=== PATIENT | female | born 1980 | race Caucasian/White ===

== ENCOUNTER → 2018-04-04 15:40 | Outpatient (CLI) | payer OTHER, SELFPAY | PROVIDERS: Visit Provider Otolaryngology Otolaryngology/Facial Plastic Surgery | DX: J32.9 Chronic sinusitis, unspecified (principal) | CPT/HCPCS: 87070; 87205 ==

== ENCOUNTER → 2018-06-30 16:31 | Outpatient (CLI) | payer OTHER, SELFPAY | PROVIDERS: Referring Provider Otolaryngology; Visit Provider Otolaryngology | DX: J01.90 Acute sinusitis, unspecified (principal) | CPT/HCPCS: 87070; 87205 ==

== ENCOUNTER → 2018-09-15 15:59 | Outpatient (CLI) | payer OTHER, SELFPAY ==
--- NOTE | 2018-09-15 16:02 | CT_ITS ---
STUDY: CT MAXILLOFACIAL SINUSES REASON FOR EXAM: Female, 38 years old. Recurrent sinusitis after multiple antibiotics RADIATION DOSAGE (If Supplied By Facility): CTDIvol = ( 33.45 ) mGy, DLP = ( 814 ) mGycm TECHNIQUE: The patient was scanned in a multi detector CT scanner. High resolution axial imaging was performed without the administration of intravenous contrast material. Sagittal and coronal images were reconstructed. Individualized dose optimization techniques were used for this CT. COMPARISON: None. FINDINGS: FRONTAL SINUSES: Normal aeration, without mucosal inflammatory disease. ETHMOIDAL SINUSES: Normal aeration, without mucosal inflammatory disease. MAXILLARY SINUSES: Normal aeration, without mucosal inflammatory disease. SPHENOIDAL SINUSES: Normal aeration, without mucosal inflammatory disease. There is patency of the bilateral maxillary infundibuli with normal uncinate processes, ethmoid bullae, and hiatus semilunaris. Normal bilateral middle turbinates. Normal bilateral inferior turbinates. There is a right sided nasal septal deviation with a right sided nasal septal spur. There is patency of the bilateral nasal airways. The visualized osseous structures are normal. The visualized bilateral orbital contents are normal. CT/Sinus/Facial Bone IMPRESSION: Normal CT examination of the maxillofacial sinuses. Rightward nasal septal deviation with apical spur. Electronically Signed: Armando Dudley MD at 10:00 EST , Service support ,
== END ==
PROVIDERS: Referring Provider Otolaryngology; Visit Provider Otolaryngology
DX: J32.9 Chronic sinusitis, unspecified (principal)
CPT/HCPCS: 70486

== ENCOUNTER → 2018-09-25 08:30 | Outpatient (CLI) | payer OTHER, SELFPAY ==
--- NOTE | 2018-09-25 08:30 | RAD_ITS ---
STUDY: HYSTEROSALPINGOGRAM. REASON FOR EXAM: Female, 38 years old. Infertility. FLUOROSCOPY TIME (if supplied): (0:15) minutes/seconds. 2 images. TECHNIQUE: A hysterosalpingogram was performed by the manager store. Fluoroscopic services were provided. COMPARISON: None. FINDINGS: The uterus is unremarkable. Both fallopian tubes are patent with free spill. RAD/Salpingogram IMPRESSION: There is patency of both fallopian tubes with free spill. The uterus is unremarkable. Electronically Signed: Gregg Wells MD at 10:53 EST , Service support ,
== END ==
PROVIDERS: Referring Provider Obstetrics & Gynecology; Visit Provider Obstetrics & Gynecology
DX: N97.9 Female infertility, unspecified (principal)
CPT/HCPCS: 58340; 74740; Q9967

== ENCOUNTER → 2020-01-10 13:32 | Outpatient (CLI) | payer OTHER, SELFPAY | PROVIDERS: Referring Provider Internal Medicine Gastroenterology; Visit Provider Internal Medicine Gastroenterology | DX: Z11.59 Encounter for screening for other viral diseases (principal) | CPT/HCPCS: 87635; G2023; U0004 ==

== ENCOUNTER → 2020-06-13 07:59 | Outpatient (CLI) | payer OTHER, SELFPAY ==
[2020-06-12 17:40] VITALS: BMI 47.1
[2020-06-13 13:21] LABS: Absolute Lymphocyte Count 1.74 X10^3/uL (0.83-4.51); Absolute Neutrophil Count 2.9 X10^3/uL (2.0-7.7); Basophil# 0.04 X10^3/uL; Basophil% 0.7 % (0-1); Eosinophil# 0.32 X10^3/uL; Eosinophils% 5.9 % (0-5); Hematocrit 41.3 % (37-47); Hemoglobin 12.4 g/dL (12.0-15.0); Lymphocyte # 1.74 X10^3/ul (4.0); Lymphocyte % 32.3 % (19-41); Mean Corpuscular Hgb 24.6 pg (27.0-32.0); Mean Corpuscular Volume 81.9 fL (81-99); Mean Platelet Vol. 10.7 fl (6.2-12.0); Monocyte# 0.38 X10^3/uL; Monocyte% 7.1 % (0-10); NRBC Flagged by Analyzer 0 % (0-5); Neutrophil # 2.89 X10^3/uL (2.7-7.7); Neutrophil % 53.8 % (47-70); Platelet Count 349 K/mm3 (150-450); RBC Distribution Width CV 15.8 % (11.6-14.6); RBC Distribution Width SD 47.3 fl (35.1-43.9); Red Blood Count 5.04 M/mm3 (4.2-5.4); White Blood Count 5.4 K/mm3 (4.4-11.0)
[2020-06-13 13:45] LABS: AST(SGOT) 14 U/L (15-37); Alanine Aminotransfer ALT/SGPT 22 U/L (13-56); Albumin, Serum 3.6 g/dL (3.2-5.0); Alkaline Phosphatase 48 U/L (45-117); Anion Gap 8 (5-15); BUN 21 mg/dL (7-18); Calcium,Total 8.6 mg/dL (8.5-10.1); Chloride 107 mmol/L (98-107); EST Glomerular Filtration Rate 65 mL/min (>60); Est Glom Filt Rate - Afr Amer 79 mL/min (>60); Globulin 3.6 g/dL (2.2-4.2); Glucose 84 mg/dL (74-106); Potassium 3.8 mmol/L (3.5-5.1); Protein, Total 7.2 g/dL (6.4-8.2); Sodium Level 140 mmol/L (136-145); T4 Free Direct 0.98 ng/dL (0.76-1.46); Thyroid Stim Hormone (TSH) 1.71 uIU/mL (0.358-3.74)
== END ==
PROVIDERS: PCP Internal Medicine; Referring Provider Internal Medicine; Visit Provider Internal Medicine
DX: D64.9 Anemia, unspecified (principal); K21.9 Gastro-esophageal reflux disease without esophagitis; N92.6 Irregular menstruation, unspecified
CPT/HCPCS: 36415; 80053; 84439; 84443; 85025

== ENCOUNTER → 2020-06-24 10:26 | Outpatient (CLI) | payer OTHER, SELFPAY ==
[2020-06-23 15:44] VITALS: BMI 47.7
[2020-06-24 13:01] LABS: Hemoglobin A1c 5.3 % (3.8-5.6)
[2020-06-24 13:02] LABS: Prolactin 16.2 ng/mL
[2020-06-29 16:07] LABS: Testosterone, % Free 2.75 % (0.50-2.80); Testosterone, Free 0.36 ng/dL (0.10-0.85); Testosterone, Total 13 ng/dL (8-48)
== END ==
PROVIDERS: PCP Internal Medicine; Referring Provider Obstetrics & Gynecology; Visit Provider Obstetrics & Gynecology
DX: Z31.9 Encounter for procreative management, unspecified (principal)
CPT/HCPCS: 36415; 83036; 83516; 84146; 84402; 84403

== ENCOUNTER → 2020-07-16 | Outpatient (CLI) | payer OTHER, SELFPAY ==
[2020-06-23 15:44] VITALS: BMI 47.7
[2020-07-16 12:09] LABS: Mucous, Urine 0 SEEN /hpf (<or=2+)
[2020-07-16 15:28] LABS: Color, Urine Yellow (Yellow); Glucose, Dipstick Normal (Normal); Ketone-Dipstick Negative (Negative); Leukocyte Esterase-Dipstick 25 /ul (Negative); Nitrite-Dipstick Negative (Negative); Occult Blood-Urine 150 /ul (Negative); Protein-Dipstick 100 mg/dl (Negative); Specific Gravity, Urine 1.005 (1.002-1.030); Urine Bilirubin Dipstick Negative (Negative); Urine Clarity Clear (Clear); Urine Urobilinogen Normal (Normal)
[2020-07-16 15:43] LABS: Bacteria 1+ /hpf (None Seen); Squamous Epithelial Cells - UA 10-25 SEEN /hpf (5-10); White Blood Cells 5-10 SEEN /hpf (0-5)
[2020-07-16 15:44] LABS: Red Blood Cells-Urine 0-5 SEEN /hpf (0-5)
== END | disposition home or self-care (01) ==
PROVIDERS: PCP Internal Medicine; Referring Provider Internal Medicine; Visit Provider Internal Medicine
DX: R31.9 Hematuria, unspecified (principal)
CPT/HCPCS: 81001; 87086; 87088; 87186

== ENCOUNTER → 2020-09-29 07:26 | Outpatient (CLI) | payer OTHER, SELFPAY ==
--- NOTE | 2020-09-29 07:28 | CT_ITS ---
STUDY: CT BRAIN AND SINUSES WITHOUT CONTRAST REASON FOR EXAM: Female, 40 years old. CHRONIC SINUSITIS RADIATION DOSAGE (If Supplied By Facility): CTDIvol = ( 33.06 ) mGy, DLP = ( 726.41 ) mGycm TECHNIQUE: Transaxial CT imaging of the brain was performed without administration of contrast. Individualized dose optimization techniques were used for this CT. COMPARISON: No relevant priors. FINDINGS: CT BRAIN Normal soft tissue structures. Normal calvarium. Normal size ventricles and extra-axial spaces for the patient''s age. Normal white matter tracts of the cerebral hemispheres. Normal basal ganglia and thalami. Normal brainstem. Normal cerebellum. There is no intracranial hemorrhage. There are no findings of an acute ischemic infarction. CT SINUSES Post Surgical Changes: None. Frontal Sinus and Recess: Normal aeration without mucosal inflammatory disease. Ethmoidal Sinuses: Normal aeration without mucosal inflammatory disease. Maxillary Sinuses: Normal aeration without mucosal inflammatory disease. Ostiomeatal Complex: Clear. Sphenoid Sinus: Normal aeration without mucosal inflammatory disease. Sphenoethmoidal Recess: Clear. Nasal Turbinate (Right): Middle Turbinate (Right): Normal. Middle Turbinate (Left): Normal. Inferior Turbinate (Right): Normal. Inferior Turbinate (Left): Normal. Nasal Septum: Right sided nasal septal deviation with a nasal septal spur. Nasal Airway: Clear. Cri biform Plate / Anterior Cranial Fossa: Normal. Orbits: Normal. CT/Sinus/Facial Bone IMPRESSION: Right nasal septal deviation with a nasal septal spur. The sinuses are clear. Electronically Signed: Gregg Wells MD at 9:37 EST , Service support ,
== END ==
PROVIDERS: PCP Internal Medicine; Referring Provider Otolaryngology; Visit Provider Otolaryngology
DX: J32.2 Chronic ethmoidal sinusitis (principal)
CPT/HCPCS: 70486

== ENCOUNTER → 2020-11-03 09:05 | Outpatient (CLI) | payer OTHER, SELFPAY ==
[2020-06-23 15:44] VITALS: BMI 47.7
--- NOTE | 2020-11-03 09:08 | BI_ITS ---
MAMMOGRAPHY - BILATERAL DIAGNOSTIC REASON FOR EXAM: Female, 40 years old. Right breast lump. Tenderness. PERTINENT HISTORY: TECHNIQUE: Digital bilateral breast neal (3D mammographic acquisition) in the CC and MLO projections. 2-D mediolateral oblique (MLO) and craniocaudad (CC) views of both breasts were obtained. CAD: Full Field Digital Mammography with Computer Added Detection was performed. COMPARISON: Comparison is made with prior outside examination dated 10/03/2018. FINDINGS: Breast Composition: There are scattered areas of fibroglandular density. There are no dominant masses or suspicious calcifications. No other significant abnormalities are identified. There has been no significant change since the prior study. BI/DIAG MAMM W/CAD, BILAT IMPRESSION: Stable bilateral diagnostic mammogram. With the patient''s history of a palpable lump in the upper-outer quadrant of the right breast, correlation with ultrasound is recommended. ASSESSMENT CATEGORY: BIRADS Category 0: Incomplete. Need additional imaging evaluation. A letter regarding these results will be sent to the patient by the facility within 30 days. Approximately 10% of breast cancers are not detected by mammography. A normal mammogram should not delay biopsy of a clinically suspicious abnormality. Electronically Signed: Gregg Wells MD at 13:37 EDT , Service support ,
--- NOTE | 2020-11-03 09:08 | US_ITS ---
STUDY: ULTRASOUND BREAST - RIGHT REASON FOR EXAM: Female, 40 years old. Palpable lump in the right breast. TECHNIQUE: Axial and longitudinal images of the RIGHT breast were performed with a high resolution ultrasound transducer. # OF IMAGES: 17 COMPARISON: None. FINDINGS: RIGHT Breast: The upper outer quadrant of the right breast was examined by ultrasound. No sonographic abnormality is seen. US/Breast Limited Unilateral IMPRESSION: No sonographic abnormality is seen. ASSESSMENT CATEGORY: BIRADS Category 1: Negative. A letter regarding these results will be sent to the patient by the facility within 30 days. Electronically Signed: Gregg Wells MD at 10:51 EDT , Service support ,
== END ==
PROVIDERS: PCP Internal Medicine; Referring Provider Obstetrics & Gynecology; Visit Provider Obstetrics & Gynecology
DX: N63.11 Unspecified lump in the right breast, upper outer quadrant (principal)
CPT/HCPCS: 76642; 77062; 77066; G0279

== ENCOUNTER → 2021-04-01 12:06 | Outpatient (CLI) | payer OTHER, SELFPAY ==
[2021-02-26 12:12] VITALS: BMI 47.7
--- NOTE | 2021-04-01 12:08 | EKG12_ITS ---
Test Reason : ROUTINE Blood Pressure : / mmHG Vent. Rate : 090 BPM Atrial Rate : 090 BPM P-R Int : 154 ms QRS Dur : 084 ms QT Int : 370 ms P-R-T Axes : 072 046 073 degrees QTc Int : 452 ms Normal sinus rhythm Low voltage QRS Borderline ECG Confirmed by BHAKTI ORDARTE, LUIS ([id number]), book or script editor MILLIE POWER ([id number]) on 04/02/2021 9:17:40 AM Referred By: Mark Lezama Confirmed By:LUIS YA MD
== END ==
PROVIDERS: PCP Internal Medicine; Referring Provider Internal Medicine; Visit Provider Internal Medicine
DX: R00.0 Tachycardia, unspecified (principal)
CPT/HCPCS: 93005

== ENCOUNTER → 2021-04-08 08:39 | Outpatient (CLI) | payer OTHER, SELFPAY ==
[2021-04-08 12:18] LABS: Absolute Lymphocyte Count 1.49 X10^3/uL (0.83-4.51); Absolute Neutrophil Count 2.5 X10^3/uL (2.0-7.7); Basophil# 0.04 X10^3/uL; Basophil% 0.9 % (0-1); Eosinophil# 0.23 X10^3/uL; Hematocrit 43.4 % (37-47); Hemoglobin 13.2 g/dL (12.0-15.0); Lymphocyte # 1.49 X10^3/ul (0.83-4.51); Lymphocyte % 32.3 % (19-41); Mean Corp Hgb Conc 30.4 g/dL (32-36); Mean Corpuscular Hgb 26.8 pg (27.0-32.0); Mean Corpuscular Volume 88.2 fL (81-99); Mean Platelet Vol. 10.6 fl (6.2-12.0); Monocyte# 0.36 X10^3/uL; Monocyte% 7.8 % (0-10); NRBC Flagged by Analyzer 0 % (0-5); Neutrophil # 2.47 X10^3/uL (2.7-7.7); Neutrophil % 53.6 % (47-70); Platelet Count 273 K/mm3 (150-450); RBC Distribution Width CV 13.8 % (11.6-14.6); RBC Distribution Width SD 44.4 fl (35.1-43.9); Red Blood Count 4.92 M/mm3 (4.2-5.4); White Blood Count 4.6 K/mm3 (4.4-11.0)
[2021-04-08 12:56] LABS: ALB/GLOB Ratio 0.9 RATIO (0.9-2.4); AST(SGOT) 25 U/L (15-37); Alanine Aminotransfer ALT/SGPT 42 U/L (13-56); Albumin, Serum 3.3 g/dL (3.2-5.0); Alkaline Phosphatase 37 U/L (45-117); Anion Gap 5 (5-15); BUN 13 mg/dL (7-18); BUN/Creat Ratio 13.3 RATIO (10-20); Calcium,Total 8.4 mg/dL (8.5-10.1); Chloride 109 mmol/L (98-107); Creatinine, Serum 0.98 mg/dL (0.55-1.02); EST Glomerular Filtration Rate 67 mL/min (>60); Est Glom Filt Rate - Afr Amer 81 mL/min (>60); Globulin 3.7 g/dL (2.2-4.2); Glucose 106 mg/dL (74-106); Potassium 4.1 mmol/L (3.5-5.1); Sodium Level 140 mmol/L (136-145); Thyroid Stim Hormone (TSH) 2.03 uIU/mL (0.358-3.74)
== END ==
PROVIDERS: PCP Internal Medicine; Referring Provider Physician Assistant; Visit Provider Physician Assistant
DX: R00.0 Tachycardia, unspecified (principal)
CPT/HCPCS: 36415; 80053; 84443; 85025

== ENCOUNTER → 2021-04-30 | Outpatient (CLI) | payer OTHER, SELFPAY | END | disposition home or self-care (01) | PROVIDERS: PCP Internal Medicine; Referring Provider Nurse Practitioner Family; Visit Provider Nurse Practitioner Family | DX: R05 Cough (principal); Z20.822 Contact with and (suspected) exposure to COVID-19 | CPT/HCPCS: 87633 ==

== ENCOUNTER → 2021-05-13 12:04 | Outpatient (CLI) | payer OTHER, SELFPAY | PROVIDERS: PCP Internal Medicine; Visit Provider Physician Assistant | DX: R00.0 Tachycardia, unspecified (principal) | CPT/HCPCS: 93225; 93226 ==

== ENCOUNTER → 2021-05-27 06:53 | Day surgery (SDC) | payer OTHER, SELFPAY ==
[2021-05-26 13:51] VITALS: BMI 49.0
[2021-05-26 15:35] LABS: Absolute Lymphocyte Count 1.97 X10^3/uL (0.83-4.51); Absolute Neutrophil Count 5.8 X10^3/uL (2.0-7.7); Basophil# 0.04 X10^3/uL; Basophil% 0.5 % (0-1); Eosinophil# 0.24 X10^3/uL; Eosinophils% 2.8 % (0-5); Hematocrit 42.4 % (37-47); Hemoglobin 13.3 g/dL (12.0-15.0); Lymphocyte # 1.97 X10^3/ul (0.83-4.51); Lymphocyte % 22.9 % (19-41); Mean Corp Hgb Conc 31.4 g/dL (32-36); Mean Corpuscular Volume 86.2 fL (81-99); Mean Platelet Vol. 10.4 fl (6.2-12.0); Monocyte# 0.53 X10^3/uL; Monocyte% 6.2 % (0-10); NRBC Flagged by Analyzer 0 % (0-5); Neutrophil # 5.78 X10^3/uL (2.7-7.7); Neutrophil % 67.1 % (47-70); Platelet Count 281 K/mm3 (150-450); RBC Distribution Width CV 13.5 % (11.6-14.6); RBC Distribution Width SD 42.5 fl (35.1-43.9); Red Blood Count 4.92 M/mm3 (4.2-5.4); White Blood Count 8.6 K/mm3 (4.4-11.0)
[2021-05-26 15:58] LABS: Anion Gap 9 (5-15); BUN 12 mg/dL (7-18); BUN/Creat Ratio 10.8 RATIO (10-20); Calcium,Total 8.8 mg/dL (8.5-10.1); Chloride 106 mmol/L (98-107); Creatinine, Serum 1.11 mg/dL (0.55-1.02); EST Glomerular Filtration Rate 58 mL/min (>60); Est Glom Filt Rate - Afr Amer 70 mL/min (>60); Estimated Creatinine Clearance 65.52 ml/min; Glucose 128 mg/dL (74-106); Potassium 3.9 mmol/L (3.5-5.1); Sodium Level 139 mmol/L (136-145)
[2021-05-26 16:06] LABS: Partial Thromboplast Time 29.4 Seconds (24.1-36.2)
[2021-05-27 07:27] LABS: Internal QC Validated? YES +Cl - CLEAR BKGD; Pregnancy, Urine Negative Negative
--- NOTE | 2021-05-27 09:07 | CL.D_ITS ---
Patient Name: ADDI VILLALPANDO Study Date: 05/27/2021 Performing: Sahil Crandall MD Ht: 66.92 inches 170 cm : 1980 Wt: 313.06 lbs 142 kg Age: 41 Gender: female BSA: 2.44 PROCEDURE(S) PERFORMED [id number]/LV CLINICAL PROFILE AND INDICATIONS Indications: Cardiac Arrythmia Heart Failure: None Stress/Imaging Stress/Image Study Performed: No CAD Presentations: Other: dizziness CONCLUSIONS Normal coronary arteries Normal LV size, wall motion,and systolic function RECOMMENDATIONS EP opinion. DESCRIPTION OF PROCEDURE The patient arrived to the procedure lab. The risks and benefits of the procedure as well as a full d escription of our services here and current unavailability of surgical backup were fully explained to the patient and/or their significant other prior to the catheterization. The Timeout was completed, verifying the correct patient and procedure. The patient's procedural site was prepped and draped in the usual fashion. Local anesthetic was given subcutaneously to right radial region with Lidocaine 2% . Using a modified Seldinger technique, arterial access was obtained via the right radial artery, a 6 Fr sheath was inserted. Left Coronary Artery selective angiography was performed in multiple views u sing a 5 Fr. 4.0 Latham catheter. Right Coronary Artery selective angiography was then performed in mu ltiple views using a 5 Fr. 4.0 Latham catheter. Left Ventriculography was performed in POTTER projection using a 5 Fr. Pigtail catheter. LV to AO pullback pressures were then recorded.The arterial sheath was pulled and a TR Band was applied for hemostasis CORONARY ANGIOGRAPHY DOMINANCE: Co- Dominant LEFT HEART ASSESSMENT Left Ventricular Ejection Fraction: by LV Gram 60 % Normal LV wall motion Normal Left Ventricular systolic function Normal Left Ventricular systolic function LEFT MAIN: Angiographically normal LEFT ANTERIOR DESCENDING ARTERY: Angiographically normal CIRCUMFLEX ARTERY: Angiographically normal RIGHT CORONARY ARTERY: Angiographically normal COMPLICATIONS No Complications PROCEDURE MEDICATIONS Fentanyl 50 mcg IV Versed 1 mg IV Versed 1 mg IV Oxygen: 2 L/min via nasal cannula SUMMARY OF HEMODYNAMIC DATA Time AIR REST ECG 07:25:02 ECG 08:09:30 AO 158/84 (112) SA 08:28:55 LV 156/12, 19 08:56:45 LV 155/11, 20 08:56:52 LV 161/15, 22 08:57:50 LVp 146/14, 23 08:57:55 AOp 148/91 (116) 08:58:00 09:04:49 Signed By Sahil Crandall MD On 05/27/2021 09:06:19 Sahil Crandall MD
== END ==
PROVIDERS: Physician Assistant Medical; PCP Internal Medicine; Referring Provider Internal Medicine Cardiovascular Disease; Visit Provider Internal Medicine Cardiovascular Disease
DX: R00.2 Palpitations (principal); R00.0 Tachycardia, unspecified; R42 Dizziness and giddiness; K21.9 Gastro-esophageal reflux disease without esophagitis; M79.7 Fibromyalgia; M19.90 Unspecified osteoarthritis, unspecified site; E66.9 Obesity, unspecified; Z68.42 Body mass index [BMI] 45.0-49.9, adult; Z79.899 Other long term (current) drug therapy; Z87.891 Personal history of nicotine dependence
CPT/HCPCS: 36415; 80048; 81025; 85025; 85610; 85730; 93458; 99152; 99153; J7040; Q9967; C1769; C1894

== ENCOUNTER → 2021-07-06 15:04 | Outpatient (CLI) | payer OTHER, SELFPAY ==
[2021-07-06 15:38] LABS: Absolute Lymphocyte Count 1.98 X10^3/uL (0.83-4.51); Absolute Neutrophil Count 3.6 X10^3/uL (2.0-7.7); Basophil# 0.03 X10^3/uL; Basophil% 0.5 % (0-1); Eosinophil# 0.16 X10^3/uL; Eosinophils% 2.6 % (0-5); Hematocrit 41.2 % (37-47); Lymphocyte # 1.98 X10^3/ul (0.83-4.51); Lymphocyte % 32.5 % (19-41); Mean Corp Hgb Conc 31.6 g/dL (32-36); Mean Corpuscular Hgb 26.8 pg (27.0-32.0); Mean Corpuscular Volume 84.9 fL (81-99); Mean Platelet Vol. 9.8 fl (6.2-12.0); Monocyte% 4.9 % (0-10); NRBC Flagged by Analyzer 0 % (0-5); Neutrophil # 3.62 X10^3/uL (2.7-7.7); Neutrophil % 59.3 % (47-70); Platelet Count 322 K/mm3 (150-450); RBC Distribution Width CV 14.1 % (11.6-14.6); RBC Distribution Width SD 43.7 fl (35.1-43.9); Red Blood Count 4.85 M/mm3 (4.2-5.4); White Blood Count 6.1 K/mm3 (4.4-11.0)
[2021-07-06 15:47] LABS: D-Dimer Quantitative (DVT/PE) <= 0.27 FEU/ug/m (0.27-0.49)
[2021-07-06 16:02] LABS: Anion Gap 5 (5-15); BUN 14 mg/dL (7-18); BUN/Creat Ratio 13.3 RATIO (10-20); Calcium,Total 8.8 mg/dL (8.5-10.1); Chloride 109 mmol/L (98-107); Creatinine, Serum 1.05 mg/dL (0.55-1.02); EST Glomerular Filtration Rate 61 mL/min (>60); Est Glom Filt Rate - Afr Amer 74 mL/min (>60); Glucose 96 mg/dL (74-106); Magnesium 2.1 mg/dL (1.6-2.6); Potassium 3.6 mmol/L (3.5-5.1); Sodium Level 137 mmol/L (136-145); Thyroid Stim Hormone (TSH) 2.02 uIU/mL (0.358-3.74)
== END ==
PROVIDERS: PCP Internal Medicine; Referring Provider Physician Assistant Medical; Visit Provider Physician Assistant Medical
DX: R07.89 Other chest pain (principal); R00.0 Tachycardia, unspecified; R06.00 Dyspnea, unspecified
CPT/HCPCS: 36415; 80048; 83735; 84443; 85025; 85379

== ENCOUNTER 2021-10-29 13:01 | Outpatient (CLI) | payer OTHER, SELFPAY ==
[2021-10-29 13:45] LABS: Mucous, Urine 0 SEEN /hpf (<or=2+); White Blood Cells 0 SEEN /hpf (0-5)
[2021-10-29 15:28] LABS: Internal QC Validated? YES +Cl - CLEAR BKGD; Pregnancy, Serum, hCG Quali. NEGATIVE Negative
[2021-10-29 15:36] LABS: Follicle Stimulating Hormone 7.7 mIU/mL; Luteinizing Hormone 4.1 mIU/mL
[2021-10-29 15:39] LABS: Anion Gap 8 (5-15); BUN 15 mg/dL (7-18); BUN/Creat Ratio 14.3 RATIO (10-20); Calcium,Total 9.1 mg/dL (8.5-10.1); Chloride 109 mmol/L (98-107); Creatinine, Serum 1.05 mg/dL (0.55-1.02); EST Glomerular Filtration Rate 61 mL/min (>60); Est Glom Filt Rate - Afr Amer 74 mL/min (>60); Glucose 93 mg/dL (74-106); Sodium Level 140 mmol/L (136-145)
[2021-10-29 15:40] LABS: Progesterone Level 0.29 ng/mL (See Comment)
[2021-10-29 15:42] LABS: Color, Urine Straw (Yellow); Glucose, Dipstick Normal (Normal); Ketone-Dipstick Negative (Negative); Leukocyte Esterase-Dipstick Negative /ul (Negative); Nitrite-Dipstick Negative (Negative); Occult Blood-Urine 150 /ul (Negative); Protein-Dipstick 30 mg/dl (Negative); Urine Bilirubin Dipstick Negative (Negative); Urine Clarity Clear (Clear); Urine Urobilinogen Normal (Normal)
[2021-10-29 15:52] LABS: Bacteria 1+ /hpf (None Seen); Red Blood Cells-Urine 0-5 SEEN /hpf (0-5); Squamous Epithelial Cells - UA 0-5 SEEN /hpf (5-10)
== END 2021-10-29 23:59 | disposition home or self-care (01) ==
PROVIDERS: PCP Internal Medicine; Referring Provider Physician Assistant; Visit Provider Physician Assistant
DX: N39.0 Urinary tract infection, site not specified (principal); I47.2 Ventricular tachycardia; N92.6 Irregular menstruation, unspecified
CPT/HCPCS: 36415; 80048; 81001; 82670; 83001; 83002; 84144; 84703; 87086; 87088

== ENCOUNTER → 2021-12-21 | Outpatient (CLI) | payer OTHER, SELFPAY ==
--- NOTE | 2021-12-21 15:08 | BI_ITS ---
MAMMOGRAPHY - BILATERAL SCREENING REASON FOR EXAM: Female, 41 years old. Routine annual screening examination. PERTINENT HISTORY: Non-contributory. TECHNIQUE: Digital bilateral breast tonya (3D mammographic acquisition) in the CC and MLO projections. 2-D mediolateral oblique (MLO) and craniocaudad (CC) views of both breasts were obtained. CAD: Full Field Digital Mammography with Computer Added Detection was performed. COMPARISON: Comparison is made with prior study 11/03/2020. FINDINGS: Breast Composition: The breasts are almost entirely fatty. There are no dominant masses or suspicious calcifications. Stable small benign-appearing bilateral axillary lymph nodes. No other significant abnormalities are identified. There has been no significant change since the prior study. BI/SCRN MAMM (CAD)W/TONYA BILAT IMPRESSION: Stable bilateral screening mammogram. Yearly follow-up mammogram recommended. (A) ASSESSMENT CATEGORY: BIRADS Category 2: Benign. A letter regarding these results will be sent to the patient by the facility within 30 days. Approximately 10% of breast cancers are not detected by mammography. A normal mammogram should not delay biopsy of a clinically suspicious abnormality. [id number] Electronically Signed: Gregg Wells MD at 8:53 EDT ,
--- NOTE | 2021-12-21 15:37 | US_ITS ---
STUDY: ULTRASOUND OF THE FEMALE PELVIS - COMPLETE REASON FOR EXAM: Female, 41 years old. AUB LMP: 12/11/2021 TECHNIQUE: Transabdominal and Transvaginal TECHNICAL QUALITY: Adequate. COMPARISON: None. FINDINGS: The uterus is anteverted and is retroflexed. The uterus measures 7.6 x 5 x 3.9 cm. Normal uterine cervix. The endometrium measures 13 mm in thickness, and is hyperechoic. There is no demonstrated endometrial mass. There is a 1.6 x 2.2 x 2.5 cm fibroid. I.U.D. - The patient does not have an I.U.D. The right ovary is visualized. The right ovary measures 1.6 x 3.8 x 2.4 cm. There is a simple 4.0 cm cyst. There is normal arterial and normal venous vascularity. The left ovary is visualized. The left ovary measures 3 x 2.8 x 1.4 cm. There is no left ovarian cyst or ovarian mass. There is no visualized left adnexal mass or complex lesion. There is normal arterial and normal venous vascularity. There is no fluid in the cul-de-sac. The pre void volume of the bladder was 567.44 ml. The post void volume of the bladder was less than 10 ml. US/Transvaginal Non- IMPRESSION: Small uterine fibroid. Simple right adnexal cyst, given patient''s age, short-term follow-up recommended to ensure resolution No suspicious adnexal mass or free fluid Electronically Signed: Miguel Reeves MD at 19:20 EDT ,
--- NOTE | 2021-12-21 15:37 | US_ITS ---
STUDY: ULTRASOUND OF THE FEMALE PELVIS - COMPLETE REASON FOR EXAM: Female, 41 years old. AUB LMP: 12/11/2021 TECHNIQUE: Transabdominal and Transvaginal TECHNICAL QUALITY: Adequate. COMPARISON: None. FINDINGS: The uterus is anteverted and is retroflexed. The uterus measures 7.6 x 5 x 3.9 cm. Normal uterine cervix. The endometrium measures 13 mm in thickness, and is hyperechoic. There is no demonstrated endometrial mass. There is a 1.6 x 2.2 x 2.5 cm fibroid. I.U.D. - The patient does not have an I.U.D. The right ovary is visualized. The right ovary measures 1.6 x 3.8 x 2.4 cm. There is a simple 4.0 cm cyst. There is normal arterial and normal venous vascularity. The left ovary is visualized. The left ovary measures 3 x 2.8 x 1.4 cm. There is no left ovarian cyst or ovarian mass. There is no visualized left adnexal mass or complex lesion. There is normal arterial and normal venous vascularity. There is no fluid in the cul-de-sac. The pre void volume of the bladder was 567.44 ml. The post void volume of the bladder was less than 10 ml. US/Pelvic (Non ) IMPRESSION: Small uterine fibroid. Simple right adnexal cyst, given patient''s age, short-term follow-up recommended to ensure resolution No suspicious adnexal mass or free fluid Electronically Signed: Miguel Reeves MD at 19:20 EDT ,
== END | disposition home or self-care (01) ==
LOC: US 15:07
PROVIDERS: PCP Internal Medicine; Visit Provider Nurse Practitioner Women's Health
DX: Z12.31 Encounter for screening mammogram for malignant neoplasm of breast (principal); N93.9 Abnormal uterine and vaginal bleeding, unspecified
CPT/HCPCS: 76830; 76856; 77063; 77067

== ENCOUNTER → 2022-01-19 | Outpatient (CLI) | payer OTHER, SELFPAY | END | disposition home or self-care (01) | LOC: LABSPEC 01-20 09:52 | PROVIDERS: PCP Internal Medicine; Visit Provider Nurse Practitioner Women's Health | DX: R30.9 Painful micturition, unspecified (principal) | CPT/HCPCS: 87086; 87088; 87186 ==

== ENCOUNTER → 2022-01-21 | Outpatient (CLI) | payer OTHER, SELFPAY ==
--- NOTE | 2022-01-21 | EMB_PTH ---
PATIENT: ADDI PACE LOC: [facility] U#:[id number] AGE/SX: 41/F ROOM: RE01/21/[address]: KAMARI Scott : 1980 BED: DIS: 01/21/2022 SPEC #: [id number] RECD: 01/21/22 13:14 STATUS: GIOVANA REPiyush #: [id number] KEYSHAWN: 01/21/22 00:[address]: Darling Pulliam NP DEPT: SURGICAL PATHOLOGY RECD BY: Sanaz Colon ENTERED: 01/21/22 13:14 SP TYPE: ENDOM BX/C ARTHUR DR: Dr. Mark Lezama MD Tissues: Endometrium, NOS Procedures: Surgery Specimen Level IV HEADER OPERATION: Endometrial biopsy PRE-OP DIAGNOSIS: Abnormal uterine bleeding TISSUE SUBMITTED: Endometrial biopsy MICROSCOPIC DIAGNOSIS Endometrial biopsy: Weakly proliferative endometrium with focal area of endometrial tissue showing exogenous hormone effects. See comment. SJ:amaury 01/22/2022 COMMENT Clinical correlation and appropriate follow up are necessary. MICROSCOPIC DESCRIPTION Slides are reviewed. GROSS DESCRIPTION Received is one container labeled with the patient's name and not further designated. The specimen consists of multiple irregular fragments of colunga-pink soft tissue mixed with mucoid tissue that in aggregate measure 2.5 x 1.5 x 0.1 cm. The specimen is totally submitted in one cassette. / GINI:amaury 01/21/2022 TC:3 CPT: 24249
== END | disposition home or self-care (01) ==
PROVIDERS: PCP Internal Medicine; Referring Provider Nurse Practitioner Women's Health; Visit Provider Nurse Practitioner Women's Health
DX: N93.9 Abnormal uterine and vaginal bleeding, unspecified (principal)
CPT/HCPCS: 88305

== ENCOUNTER → 2022-02-05 | Outpatient (CLI) | payer OTHER, SELFPAY | END | disposition home or self-care (01) | PROVIDERS: PCP Internal Medicine; Referring Provider Obstetrics & Gynecology; Visit Provider Obstetrics & Gynecology | DX: N39.0 Urinary tract infection, site not specified (principal) | CPT/HCPCS: 87086; 87088; 87186 ==

== ENCOUNTER → 2022-04-16 | Outpatient (CLI) | payer OTHER, SELFPAY ==
--- NOTE | 2022-04-16 14:41 | PFTCOMP_ITS ---
COMPLETE PULMONARY FUNCTION TEST INTERPRETATION Brief HPI: Patient is a 41-year-old female, currently under the care of Toma Estrada, who presents to [facility] for complete pulmonary function tests secondary to diagnosis of dyspnea with history of COVID-19. Respiratory therapist reports good effort and reproducible results. Interpretation: Forced expiration spirometry shows no large airways obstructive ventilatory defect with an FEV1 of 93% predicted. There was no bronchodilator response tested. Spirograms are of good quality and plateau normally. The respiratory flow volume loop shows a normal pattern. Lung volumes by body plethysmography show a normal total lung capacity at 6.33 L, 112% predicted. All other lung volumes are within normal limits. Diffusion capacity by carbon monoxide is normal at 84% predicted. The airway resistance is normal. No previous pulmonary function tests were available for review. Impression: These pulmonary function tests are within normal limits
== END | disposition home or self-care (01) ==
LOC: PSN 12:53
PROVIDERS: PCP Internal Medicine; Referring Provider Nurse Practitioner Gerontology; Visit Provider Nurse Practitioner Gerontology
DX: R06.09 Other forms of dyspnea (principal)
CPT/HCPCS: 94010; 94726; 94729

== ENCOUNTER → 2022-06-30 | Outpatient (CLI) | payer OTHER, SELFPAY ==
[2022-06-30 21:08] LABS: Mucous, Urine 0 SEEN /hpf (<or=2+)
[2022-06-30 21:09] LABS: Color, Urine Yellow (Yellow); Glucose, Dipstick Normal (Normal); Ketone-Dipstick Negative (Negative); Leukocyte Esterase-Dipstick 25 /ul (Negative); Nitrite-Dipstick Negative (Negative); Occult Blood-Urine 250 /ul (Negative); Protein-Dipstick 100 mg/dl (Negative); Urine Bilirubin Dipstick Negative (Negative); Urine Clarity Clear (Clear); Urine Urobilinogen Normal (Normal)
[2022-06-30 21:15] LABS: Bacteria RARE /hpf (None Seen); Red Blood Cells-Urine 0-5 SEEN /hpf (0-5); Squamous Epithelial Cells - UA 5-10 SEEN /hpf (5-10); White Blood Cells 0-5 SEEN /hpf (0-5)
== END | disposition home or self-care (01) ==
PROVIDERS: PCP Internal Medicine; Visit Provider Physician Assistant
DX: R30.9 Painful micturition, unspecified (principal)
CPT/HCPCS: 81001; 87086; 87088

== ENCOUNTER → 2022-09-22 | Outpatient (CLI) | payer OTHER, SELFPAY ==
--- NOTE | 2022-09-22 11:37 | US_ITS ---
STUDY: RENAL ULTRASOUND - COMPLETE REASON FOR EXAM: Female, 42 years old. UTI TECHNIQUE: Ultrasound evaluation of the kidneys was performed with real-time and static kinney-scale imaging. COMPARISON: None. FINDINGS: RIGHT KIDNEY: Normal location of the right kidney, which is normal in size. The right kidney measures 11 cm x 5.17 x 4.3 cm. There is a normal cortex of the right kidney. The renal cortex measures 2.2 cm. There is a 1.1 cm x 1.1 cm x 0.7 cm cyst. There are no right renal calculi. There is no right hydronephrosis. DISTAL RIGHT URETER: There is non-visualization of the distal right ureter. There is no demonstrated right ureterovesical junction calculus. There is a visualized right ureteral jet. LEFT KIDNEY: Normal location of the left kidney, which is normal in size. The left kidney measures 11.8 cm x 5.4 cm x 4.9 cm. There is a normal cortex of the left kidney. The renal cortex measures 1.9 cm. There is no left renal mass or cyst. There are no left renal calculi. There is no left hydronephrosis. DISTAL LEFT URETER: There is non-visualization of the distal left ureter. There is no demonstrated left ureterovesical junction calculus. There is a visualized left ureteral jet. BLADDER: The distended urinary bladder has a volume of 388 ml. There is a normal wall thickness of the distended urinary bladder. There is no demonstrated mass within the urinary bladder. There are no demonstrated bladder calculi. US/Kidney and Bladder IMPRESSION: 1.1 cm x 1.1 cm x 0.7 cm right renal cyst. Electronically Signed: Gregg Wells MD at 15:05 EST ,
== END | disposition home or self-care (01) ==
LOC: US 11:33
PROVIDERS: PCP Internal Medicine; Referring Provider Urology; Visit Provider Urology
DX: N39.0 Urinary tract infection, site not specified (principal); N28.1 Cyst of kidney, acquired
CPT/HCPCS: 76770

== ENCOUNTER → 2022-09-24 | Outpatient (CLI) | payer OTHER, SELFPAY ==
[2022-09-29 00:06] LABS: Chlamydia By Nucleic Acid AMP Negative (Negative)
[2022-10-01 19:07] LABS: Gonococcus By Nucleic Acid AMP Negative (Negative)
== END | disposition home or self-care (01) ==
PROVIDERS: PCP Internal Medicine; Visit Provider Registered Nurse
DX: Z11.3 Encounter for screening for infections with a predominantly sexual mode of transmission (principal)
CPT/HCPCS: 87491; 87591

== ENCOUNTER → 2022-11-18 | Outpatient (CLI) | payer OTHER, SELFPAY | END | disposition home or self-care (01) | LOC: LAB 11:56 | PROVIDERS: PCP Internal Medicine; Referring Provider Internal Medicine Endocrinology, Diabetes & Metabolism; Visit Provider Internal Medicine Endocrinology, Diabetes & Metabolism | DX: R30.0 Dysuria (principal) | CPT/HCPCS: 87086; 87088; 87186 ==

== ENCOUNTER → 2023-06-13 | Outpatient (CLI) | payer BC, SELFPAY ==
[2023-06-13 12:07] LABS: Absolute Neutrophil Count 2.1 X10^3/uL (2.0-7.7); Basophil# 0.04 X10^3/uL; Eosinophil# 0.25 X10^3/uL; Eosinophils% 6.2 % (0-5); Hematocrit 38.4 % (37-47); Hemoglobin 11.8 g/dL (12.0-15.0); Lymphocyte % 34.5 % (19-41); Mean Corp Hgb Conc 30.7 g/dL (32-36); Mean Corpuscular Hgb 25.7 pg (27.0-32.0); Mean Corpuscular Volume 83.5 fL (81-99); Mean Platelet Vol. 10.9 fl (6.2-12.0); Monocyte# 0.29 X10^3/uL; Monocyte% 7.1 % (0-10); NRBC Flagged by Analyzer 0 % (0-5); Neutrophil # 2.07 X10^3/uL (2.7-7.7); Platelet Count 251 K/mm3 (150-450); RBC Distribution Width CV 16.5 % (11.6-14.6); RBC Distribution Width SD 50.3 fl (35.1-43.9); White Blood Count 4.1 K/mm3 (4.4-11.0)
[2023-06-13 12:33] LABS: Thyroid Stim Hormone (TSH) 1.11 uIU/mL (0.358-3.74)
[2023-06-13 12:44] LABS: ALB/GLOB Ratio 1.1 RATIO (0.9-2.4); AST(SGOT) 10 U/L (15-37); Alanine Aminotransfer ALT/SGPT 18 U/L (13-56); Albumin, Serum 3.4 g/dL (3.2-5.0); Alkaline Phosphatase 45 U/L (45-117); Anion Gap 4 (5-15); BUN 20 mg/dL (7-18); BUN/Creat Ratio 21.2 RATIO (10-20); Calcium,Total 8.9 mg/dL (8.5-10.1); Chloride 111 mmol/L (98-107); Cholesterol 165 mg/dL (200); Creatinine, Serum 0.94 mg/dL (0.55-1.02); EST Glomerular Filtration Rate 69 mL/min (>60); Est Glom Filt Rate - Afr Amer 83 mL/min (>60); Globulin 3.2 g/dL (2.2-4.2); Glucose 89 mg/dL (74-106); High Density Lipoprotein 45 mg/dL; Potassium 4.5 mmol/L (3.5-5.1); Protein, Total 6.6 g/dL (6.4-8.2); Sodium Level 140 mmol/L (136-145); Triglycerides 208 mg/dL; Very Low Density Lipoprotein 42 mg/dL (5-40)
== END | disposition home or self-care (01) ==
LOC: BIMLAB 10:19
PROVIDERS: Nurse Practitioner Gerontology; PCP Internal Medicine; Visit Provider Internal Medicine
DX: F32.9 Major depressive disorder, single episode, unspecified (principal); F41.9 Anxiety disorder, unspecified; I10 Essential (primary) hypertension; R00.2 Palpitations
CPT/HCPCS: 36415; 80053; 80061; 83735; 84443; 85025

== ENCOUNTER → 2023-07-20 | Outpatient (CLI) | payer BC, OTHER, SELFPAY | END | disposition home or self-care (01) | LOC: SL 19:53 | PROVIDERS: PCP Internal Medicine; Referring Provider Nurse Practitioner Gerontology; Visit Provider Nurse Practitioner Gerontology | DX: G47.10 Hypersomnia, unspecified (principal) | CPT/HCPCS: 95810 ==

== ENCOUNTER → 2024-10-10 | Outpatient (CLI) | payer OTHER, SELFPAY ==
[2024-10-10 16:54] LABS: Absolute Lymphocyte Count 2.22 X10^3/uL (0.83-4.51); Absolute Neutrophil Count 4.4 X10^3/uL (2.0-7.7); Basophil# 0.03 X10^3/uL; Basophil% 0.4 % (0-1); Eosinophil# 0.33 X10^3/uL; Eosinophils% 4.3 % (0-5); Hematocrit 41.3 % (37-47); Hemoglobin 12.7 g/dL (12.0-15.0); Lymphocyte # 2.22 X10^3/ul (0.83-4.51); Lymphocyte % 29.2 % (19-41); Mean Corp Hgb Conc 30.8 g/dL (32-36); Mean Corpuscular Hgb 26.6 pg (27.0-32.0); Mean Corpuscular Volume 86.4 fL (81-99); Mean Platelet Vol. 10.9 fl (6.2-12.0); Monocyte# 0.61 X10^3/uL; NRBC Flagged by Analyzer 0 % (0-5); Platelet Count 270 K/mm3 (150-450); RBC Distribution Width CV 13.9 % (11.6-14.6); RBC Distribution Width SD 44.4 fl (35.1-43.9); Red Blood Count 4.78 M/mm3 (4.2-5.4); White Blood Count 7.6 K/mm3 (4.4-11.0)
[2024-10-10 17:23] LABS: Cholesterol 187 mg/dL (<=200); High Density Lipoprotein 54 mg/dL; Low Density Lipoprotein Calc. 66 mg/dL; Triglycerides 332 mg/dL; Very Low Density Lipoprotein 66 mg/dL (5-40); cholesterol:hdl ratio screen 3.44
[2024-10-10 17:27] LABS: ALB/GLOB Ratio 1.7 RATIO (0.9-2.4); AST(SGOT) 23 U/L (<=31); Alanine Aminotransfer ALT/SGPT 18 U/L (<=34); Albumin, Serum 4.2 g/dL (3.5-5.0); Alkaline Phosphatase 41 U/L (35-104); Anion Gap 11 (5-15); BUN 15 mg/dL (4-19); BUN/Creat Ratio 16.6 RATIO (10-20); Calcium 9.3 mg/dL (7.6-11.0); Carbon Dioxide 23.8 mmol/L (22.0-29.0); Chloride 104 mmol/L (96-108); Creatinine, Serum 0.9 mg/dL (0.6-1.0); EST Glomerular Filtration Rate 82 (>60); Globulin 2.4 g/dL (2.2-4.2); Glucose 80 mg/dL (70-99); Potassium 4.3 mmol/L (3.3-5.1); Protein, Total 6.6 g/dL (5.9-8.4); Sodium Level 139 mmol/L (133-145); Total Bilirubin < 0.15 mg/dL (0.00-1.30)
== END | disposition home or self-care (01) ==
LOC: BIMLAB 14:46
PROVIDERS: PCP Internal Medicine; Referring Provider Internal Medicine; Visit Provider Internal Medicine
DX: I10 Essential (primary) hypertension (principal)
CPT/HCPCS: 36415; 80053; 80061; 85025

== ENCOUNTER → 2024-10-12 | Outpatient (CLI) | payer OTHER, SELFPAY ==
--- NOTE | 2024-10-12 12:13 | BI_ITS ---
PROCEDURE: SCRN MAMM (CAD)W/TONYA BILAT REASON FOR EXAM: F, Age 44 y/o, presents for annual screening mammogram. No family history of breast cancer. TECHNIQUE: Bilateral screening digital breast tomosynthesis with 2D and 3D images. Computer aided detection. COMPARISON: 12/21/2021 FINDINGS: The breasts are almost entirely fatty. No suspicious masses, areas of developing architectural distortion, or suspicious calcifications. BI/SCRN MAMM (CAD)W/TONYA BILAT IMPRESSION: There is no mammographic evidence of malignancy in either breast. The patient reports right upper outer breast pain, on today's examination there is nothing to explain the pain. The patient may return for u ltrasound of the right breast if clinically indicated. BI-RADS 1: NEGATIVE. RECOMMEND ANNUAL MAMMOGRAPHIC SCREENING. Follow-up code: Routine Follow-up The patient will be notified of the results by letter. Reading Location: [id number]
== END | disposition home or self-care (01) ==
LOC: OPBI 12:12
PROVIDERS: PCP Internal Medicine; Referring Provider Internal Medicine; Visit Provider Internal Medicine
DX: Z12.31 Encounter for screening mammogram for malignant neoplasm of breast (principal)
CPT/HCPCS: 77063; 77067

== ENCOUNTER → 2025-01-22 | Outpatient (CLI) | payer OTHER, SELFPAY | END | disposition home or self-care (01) | PROVIDERS: PCP Internal Medicine | DX: N39.0 Urinary tract infection, site not specified (principal) | CPT/HCPCS: 87077; 87086; 87088; 87186 ==

== ENCOUNTER → 2025-03-04 | Outpatient (CLI) | payer OTHER, SELFPAY ==
[2025-03-04 15:59] LABS: Cholesterol 154 mg/dL (<=200); Low Density Lipoprotein Calc. 70 mg/dL; Triglycerides 135 mg/dL; Very Low Density Lipoprotein 27 mg/dL (5-40); cholesterol:hdl ratio screen 2.70
== END | disposition home or self-care (01) ==
LOC: MFPLAB 12:26
PROVIDERS: PCP Internal Medicine; Visit Provider Student in an Organized Health Care Education/Training Program
DX: E78.5 Hyperlipidemia, unspecified (principal)
CPT/HCPCS: 36415; 80061

== ENCOUNTER → 2025-03-18 | Outpatient (CLI) | payer OTHER, SELFPAY ==
--- NOTE | 2025-03-18 14:37 | VDLE_ITS ---
Reason For Study Reason For Study: Right leg swelling RIGHT GSV is normal. CFV is compressible, spontaneous, phasic, competent and demonstrates normal augmentation. FV is compressible, spontaneous, phasic, competent and demonstrates normal augmentation. POP V is compressible, spontaneous, phasic, competent and demonstrates normal augmentation. T/P Trunk is compressible. PTV is compressible. RT PerV is compressible. Procedure This is a venous duplex using B-mode, color flow and spectral Doppler. Exam performed in department. A preliminary report was called and/or faxed to [facility]. VL/Venous Duplex US, Unilateral Interpretation Summary Deep veins of the right lower extremity are patent and compressible segmentally . There is no evidence of right lower extremity deep vein thrombosis. The right great saphenous vein appears patent a nd compressible segmentally. Ordering Physician: Kamlesh Horta Referring Physician: Mark Lezama Performed By: Irene Dawson RVT
== END | disposition home or self-care (01) ==
LOC: CVS 14:36
PROVIDERS: PCP Internal Medicine; Referring Provider Student in an Organized Health Care Education/Training Program; Visit Provider Student in an Organized Health Care Education/Training Program
DX: R60.0 Localized edema (principal); Z83.2 Family history of diseases of the blood and blood-forming organs and certain disorders involving the immune mechanism
CPT/HCPCS: 93971

== ENCOUNTER → 2025-04-08 | Outpatient (CLI) | payer OTHER, SELFPAY ==
--- NOTE | 2025-04-08 17:37 | US_ITS ---
PROCEDURE: PELVIC W/ TRANSVAGINAL REASON FOR EXAM: AUB TECHNIQUE: PELVIC W/ TRANSVAGINAL COMPARISON: December 21, 2021. FINDINGS: LMP: February 14, 2025. Measurements: Uterus: 7.9 cm x 6.7 cm x 4.5 cm with a volume of 125.29 mL Endometrial Thickness: 1.4 cm Right Ovary: 6.4 cm x 5.4 cm x 4.2 cm with a volume of 75.16 mL. Left Ovary: 1.8 cm x 1.4 cm x 1.4 cm with a volume of 59.31 mL. TRANSABDOMINAL: Uterus: Normal size, myometrial echotexture, and contour. Nabothian cyst. Endometrium: The endometrium is thickened. Cystic areas are seen within it. Right ovary: There is a 5.3 cm 4.4 cm 4 cm cyst in the right ovary. A daughter cyst is seen within the dominant cyst. Left ovary: Normal size and echotexture. Other: No large pelvic mass identified. Transvaginal sonography was performed to better visualize the endometrium. TRANSVAGINAL: Uterus: Anteverted. Endometrium: Endometrium is thickened measuring 1.4 cm. Cystic changes are seen within it. Clinical correlation recommended. Right ovary: There is a dominant 5.3 cm 4.4 cm 4 cm cyst in the right ovary. A daughter cyst is seen within the dominant cyst. Left ovary: Normal size and echotexture. Other adnexal findings: None. Cul-de-sac: No free intraperitoneal fluid identified. Tenderness: No tenderness US/Pelvic w/ Transvaginal IMPRESSION: 5.3 cm 4.4 cm 4 cm cyst in the right ovary. A daughter cyst is seen within it. The endometrium is thickened measuring 1.4 cm. Reading Location: [facility]
== END | disposition home or self-care (01) ==
LOC: US 17:32
PROVIDERS: PCP Internal Medicine; Referring Provider Nurse Practitioner Women's Health; Visit Provider Nurse Practitioner Women's Health
DX: N93.9 Abnormal uterine and vaginal bleeding, unspecified (principal)
CPT/HCPCS: 76830; 76856

== ENCOUNTER → 2025-04-25 | Outpatient (CLI) | payer OTHER, SELFPAY ==
--- NOTE | 2025-04-25 11:03 | EMB_PTH ---
PATIENT: LUIS PACE LOC: [facility] U#:[id number] AGE/SX: 44/F ROOM: RE04/25/[address]: KAMARI Scott : 1980 BED: DIS: 04/25/2025 SPEC #: [id number] RECD: 04/25/25 12:46 STATUS: GIOVANA REQ #: [id number] KEYSHAWN: 04/25/25 11:[address]: Darling Pulliam NP DEPT: SURGICAL PATHOLOGY RECD BY: Esteban Angeles ENTERED: 04/25/25 14:22 SP TYPE: ENDOM BX/C ARTHUR DR: Dr. Mark Lezama MD Tissues: A - Endometrium, NOS Procedures: Surgery Specimen Level IV HEADER OPERATION: Endometrial biopsy PRE-OP DIAGNOSIS: Abnormal uterine bleeding TISSUE SUBMITTED: A- Endometrial lining MICROSCOPIC DIAGNOSIS A. Uterus, endometrium, biopsy: * Proliferative endometrium with areas of stromal breakdown and focal features suggestive of polyp formation MICROSCOPIC DESCRIPTION Slides are reviewed. GROSS DESCRIPTION A. Received in formalin labeled the patient's name and date of is a 2.8 x 1.3 x 0.3 cm aggregate of mucoid material, colunga-pink to red tissue fragments and clotted blood. Entirely submitted in [address] 04/25/2025 CPT:57609
[2025-04-30 09:08] LABS: HPV APTIMA, High Risk Negative (Negative)
== END | disposition home or self-care (01) ==
LOC: LABSPEC 11:13
PROVIDERS: PCP Internal Medicine; Referring Provider Nurse Practitioner Women's Health; Visit Provider Nurse Practitioner Women's Health
DX: Z11.3 Encounter for screening for infections with a predominantly sexual mode of transmission (principal); N93.9 Abnormal uterine and vaginal bleeding, unspecified
CPT/HCPCS: 87624; 88175; 88305; G0145

== ENCOUNTER → 2025-05-03 | Outpatient (CLI) | payer OTHER, SELFPAY ==
[2025-05-03 12:41] LABS: Hematocrit 36.8 % (37-47); Hemoglobin 11.7 g/dL (12.0-15.0); Immature Granulocytes Count 0.010 X10^3/uL (0.0-0.0); Mean Corp Hgb Conc 31.8 g/dL (32-36); Mean Corpuscular Volume 84.4 fL (81-99); Mean Platelet Vol. 10.9 fl (6.2-12.0); NRBC Flagged by Analyzer 0 % (0-5); Platelet Count 278 K/mm3 (150-450); RBC Distribution Width CV 13.5 % (11.6-14.6); RBC Distribution Width SD 42.2 fl (35.1-43.9); Red Blood Count 4.36 M/mm3 (4.2-5.4); White Blood Count 4.2 K/mm3 (4.4-11.0)
== END | disposition home or self-care (01) ==
LOC: BWCLAB 11:02
PROVIDERS: PCP Internal Medicine; Referring Provider Obstetrics & Gynecology; Visit Provider Obstetrics & Gynecology
DX: N92.0 Excessive and frequent menstruation with regular cycle (principal)
CPT/HCPCS: 36415; 84439; 84443; 85025

== ENCOUNTER → 2025-05-14 | Outpatient (CLI) | payer OTHER, SELFPAY | END | disposition home or self-care (01) | LOC: CVS 12:46 | PROVIDERS: PCP Internal Medicine; Referring Provider Student in an Organized Health Care Education/Training Program; Visit Provider Student in an Organized Health Care Education/Training Program | DX: R93.1 Abnormal findings on diagnostic imaging of heart and coronary circulation (principal); I47.10 Supraventricular tachycardia, unspecified | CPT/HCPCS: 93306; A4216 ==

== ENCOUNTER → 2025-06-17 | Outpatient (CLI) | payer OTHER, SELFPAY | END | disposition home or self-care (01) | PROVIDERS: PCP Internal Medicine | DX: N39.0 Urinary tract infection, site not specified (principal) | CPT/HCPCS: 87086; 87088; 87186 ==

== ENCOUNTER → 2025-08-02 | Outpatient (CLI) | payer OTHER, SELFPAY ==
[2025-08-02 10:17] LABS: Hematocrit 38.2 % (37-47); Hemoglobin 11.6 g/dL (12.0-15.0); Mean Corp Hgb Conc 30.4 g/dL (32-36); Mean Corpuscular Volume 87.0 fL (81-99); Mean Platelet Vol. 10.5 fl (6.2-12.0); Platelet Count 270 K/mm3 (150-450); RBC Distribution Width CV 13.2 % (11.6-14.6); RBC Distribution Width SD 42.1 fl (35.1-43.9); Red Blood Count 4.39 M/mm3 (4.2-5.4); White Blood Count 4.3 K/mm3 (4.4-11.0)
[2025-08-02 11:08] LABS: Anion Gap 12 (5-15); BUN 16 mg/dL (4-19); BUN/Creat Ratio 15.7 RATIO (10-20); Calcium,Total 9.1 mg/dL (7.6-11.0); Carbon Dioxide 24.4 mmol/L (21.0-32.0); Chloride 105 mmol/L (98-108); Glucose 81 mg/dL (70-99); Magnesium 2.2 mg/dL (1.5-2.2); Potassium 4.6 mmol/L (3.3-5.1)
== END | disposition home or self-care (01) ==
LOC: MFPLAB 08:18
PROVIDERS: Anesthesiology; PCP Internal Medicine; Visit Provider Obstetrics & Gynecology
DX: Z01.818 Encounter for other preprocedural examination (principal)
CPT/HCPCS: 36415; 80048; 83735; 85027

== ENCOUNTER 2025-08-06 07:55 | Day surgery (SDC) | payer OTHER, SELFPAY ==
[2025-07-30 15:19] LABS: Hematocrit 37.7 % (37-47); Hemoglobin 11.5 g/dL (12.0-15.0); Immature Granulocytes Count 0.010 X10^3/uL (0.0-0.0); Mean Corp Hgb Conc 30.5 g/dL (32-36); Mean Corpuscular Volume 87.5 fL (81-99); Mean Platelet Vol. 10.7 fl (6.2-12.0); NRBC Flagged by Analyzer 0 % (0-5); Platelet Count 252 K/mm3 (150-450); RBC Distribution Width CV 13.2 % (11.6-14.6); RBC Distribution Width SD 42.9 fl (35.1-43.9); Red Blood Count 4.31 M/mm3 (4.2-5.4); White Blood Count 5.5 K/mm3 (4.4-11.0)
--- NOTE | 2025-08-01 17:09 | PAT.ANE_ITS ---
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 When Was Last Pacemaker Check QUESTION #4 FULL TEXT: You/Your Family Experience fever (hyperthermia) with Anesthesia Last Oral Intake Last Oral intake: Last Oral Intake NPO since Meds taken in AM with sips of water? Meds patient instructed to take am of surgery PONV PONV - power brake operator: PONV - power brake operator Female Yes 08/01/25 12:25 HX of Motion Sickness Yes 08/01/25 12:25 HX of N/V After Surgery No 08/01/25 12:25 Non-Smoker No 08/01/25 12:25 Duration of Surgery greater Yes 08/01/25 12:25 than 60 minutes Number of Risk Factors 3 08/01/25 12:25 PONV Score Moderate Risk 08/01/25 12:25 Height & Weight Height & Weight: Anesthesia: Height & Weight Height 5 ft 7 in 05/03/25 08:21 Respiratory Assessment Respiratory Assessment - power brake operator: Respiratory Tract Infection Hx - power brake operator Hx Respiratory Tract Infection No 08/01/25 12:25 STOP Sleep Apnea STOP Sleep Apnea - power brake operator: STOP Sleep Apnea - power brake operator Hx Hypertension Yes: CONTROLLED WITH MED 08/01/25 12:25 Hx Sleep Apnea No 08/01/25 12:25 CPAP BIPAP Do you snore loudly (louder No 08/01/25 12:25 than talking or can be heard Do you often feel tired/ Yes 08/01/25 12:25 fatigued/ sleepy during daytime? Has anyone observed you stop Yes 08/01/25 12:25 breathing during sleep? STOP Results Positive 08/01/25 12:25 QUESTION #5 FULL TEXT : Do you snore loudly (louder than talking or can be heard through closed doors)? 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 Specify any problems Hx of Preganancy in last 3 No 08/01/25 12:25 Months Nurse Filling Out Transfusion DSCHRIBER 08/01/25 12:25 & Questions: Date: 08/01/25 08/01/25 12:25 Time: 12:08/01/25 12:25 Patient unable to answer at this time (ie. confused, unrespo /Reproduction History /Reproductive History - power brake operator: /Reproductive Hx- power brake operator Hx Now No 08/01/25 12:25 Gestational Age (in weeks): EDC: Hx Hx Para Hx Section SAB No 08/01/25 12:25 Does the father of the baby or his family experience fever w Father of the baby Malignant Hypertension history comment [facility] Medical History (Updated 08/01/25 @ 12:38 by Khloe Langford) Wears glasses Depression Anxiety Marijuana use Alcohol use Arthritis Anemia History of irregular heartbeat Back pain Migraine headache Gastric reflux Syncope History of hiatal hernia Vapes nicotine containing substance Leg cramps History of pain when walking History of edema History of echocardiogram Cardiology follow-up encounter History of bleeding ulcers Hypertension COVID-19 virus detected (05/27/21) Fibromyalgia history of breast lump/cyst Home Medications ?Medication ?Instructions ?Recorded ?Last Taken ?Type lysine 500 mg tablet (L-Lysine) 500 mg PO DAILY 05/27/21 History diclofenac sodium 1 % topical gel 2 g topical ONCE PRN Pain 05/21/21 Unknown History ferrous sulfate 325 mg (65 mg 325 mg PO DAILY #90 tabs 04/13/23 Unknown Rx iron) tablet (Feosol) magnesium oxide 400 mg PO DAILY #90 tabs Unknown Rx cholecalciferol (vitamin D3) 250 250 mcg PO QWEEK 06/16 Unknown History mcg (10,000 unit) capsule losartan 25 mg tablet 25 mg PO DAILY #180 tabs Unknown Rx montelukast 10 mg tablet 10 mg PO QDAY #90 tabs 10/10 Unknown Rx (Singulair) metoprolol tartrate 25 mg tablet 25 mg PO BID #180 tab s 11/05/24 Unknown Rx pantoprazole 40 mg tablet,delayed 40 mg PO DAILY #90 t abs 12/20/24 Unknown Rx release cetirizine 10 mg tablet (Zyrtec) 10 mg PO QDAY PRN all ergy symptoms 02/26/25 Unknown History buspirone 5 mg tablet 5 mg PO TID 3 months #270 ta bs 07/24/25 Unknown Rx promethazine 25 mg tablet 25 mg PO TID PRN nausea and 07/24/25 Unknown Rx vomiting #60 tabs Allergy/AdvReac Type Severity Reaction Status Date / Time NSAIDS (Non-Steroidal AdvReac Upset Verified 08/01/25 12:22 Anti-Inflamma Stomach Family History Mother Asthma Ulcer Arthritis Anxiety Anemia Sister Seizures Bleeding disorder Grandfather Liver /kidney disease Cancer Alcoholism Father Hypertension Grandmother Diabetes Cancer Other CVA (cerebral vascular accident) Colon cancer Heart disease Myocardial infarction Sudden cardiac Surgical History (Updated 08/01/25 @ 12:38 by Khloe Langford) History of esophagogastroduodenoscopy (EGD) History of hysteroscopy History of left heart catheterization (05/27/21) Social History number of children: 1 current occupational status: employed current occupation: [employer] Smoking Status: Current every day smoker tobacco type: cigarettes and e- cigarettes how long ago did patient quit smoking: >10 years ago alcohol intake: current alcohol intake frequency: a few times a month Alcohol type: beer, wine and hard liquor details: 2-3 x a month substance use type: does not use caffeine: No what type of physical activity do you participate in: walking frequency: 1-2 times per week seatbelt use: always do you feel safe at home: Yes additional social history: Audit: Pertinent Findings Pertinent Findings EKG Perinent findings: EKG 03/06/2024. Abnormal P axis. Heart rate 60 within normal limits. EKG 07/30/2024. Marked sinus bradycardia. Echo (EF%) pertinent findings: Echo 05/14/2025. Left ventricular systolic function is normal. The left ventricle ejection fraction is 65%. Consult pertinent findings: Cardiology visit 02/26/2025. 44-year-old female who presents to the office for follow-up monitoring her cardiovascular health. She has a history of palpitations. Her Apple Watch demonstrated concerns of a rhythm consistent with ventricular tachycardia. She notes that her symptoms started in November or December 2020 after she received the COVID-19 vaccine and worsened when she developed COVID later that year. She underwent heart catheterization in June 04 demonstrated normal LV function and normal coronary arteries. She was transferred to [facility] where she underwent evaluation by EP. An EP study resulted as normal and she was initiated on flecainide and beta-kaiser and tolerated this well. Flecainide has since been discontinued. She lost weight and her palpitations also improved from that. Recommendation Anesthesia Recommendation Anesthesia recommendation: OPTIMIZED for anesthesia
[2025-08-06] VITALS (12 sets, daily range): BP systolic 119–146; BP diastolic 76–92; PULSE 59–84; RESP 16–18; TEMP 36.9–37.1; O2SAT 99–100; BMI 45.2
--- NOTE | 2025-08-06 08:13 | EKG12_ITS ---
Test Reason : PREOP Blood Pressure : */* mmHG Vent. Rate : 72 BPM Atrial Rate : 72 BPM P-R Int : 168 ms QRS Dur : 90 ms QT Int : 374 ms P-R-T Axes : 47 24 46 degrees QTcB Int : 409 ms Normal sinus rhythm Normal ECG When compared with ECG of 01-Apr-2021 12:12, No significant change was found Confirmed by Parish Lewis ([id number]), supervising film or videotape editor GISELE BARBOZA ([id number]) on 08/09/2025 8:28:06 AM Referred By: Ale Ma Confirmed By: Parish Lewis
[2025-08-06 08:47] LABS: Internal QC Validated? YES +Cl - CLEAR BKGD; Pregnancy, Urine Negative Negative
[2025-08-06 08:50] LABS: Hematocrit 35.6 % (37-47); Hemoglobin 11.8 g/dL (12.0-15.0); Mean Corp Hgb Conc 33.1 g/dL (32-36); Mean Corpuscular Volume 82.4 fL (81-99); Mean Platelet Vol. 10.3 fl (6.2-12.0); Platelet Count 248 K/mm3 (150-450); RBC Distribution Width CV 13.1 % (11.6-14.6); RBC Distribution Width SD 39.7 fl (35.1-43.9); Red Blood Count 4.32 M/mm3 (4.2-5.4); White Blood Count 4.5 K/mm3 (4.4-11.0)
[2025-08-06] MEDS: Lactated Ringers 1,000 ML 40 ML IV (08:51)
[2025-08-06] MEDS: Scopolamine 1mg/72hr Patch 1 PATCH TD (08:52)
--- NOTE | 2025-08-06 09:17 | PCM.HP.BLA ---
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: No Is patient in pain?: No Allergies NSAIDS (Non-Steroidal Anti-Inflamma Adverse Reaction (Verified 07/17/25 15:50) Upset Stomach Medications ?Medication ?Instructions ?Recorded ?Confirmed ?Type lysine 500 mg tablet (L-Lysine) 500 mg PO DAILY 06/10/20 07/17/25 History diclofenac sodium 1 % topical gel 2 g topical ONCE PRN Pain 05/21/21 07/17/25 History ferrous sulfate 325 mg (65 mg 325 mg PO DAILY #90 tabs 04/13/23 07/17/25 Rx iron) tablet (Feosol) magnesium oxide 400 mg PO DAILY #90 tabs 04/13/23 07/17/25 Rx cholecalciferol (vitamin D3) 250 250 mcg PO QWEEK 07/04/23 07/17/25 History mcg (10,000 unit) capsule losartan 25 mg tablet 25 mg PO DAILY #180 tabs 07/09/24 07/17/25 Rx montelukast 10 mg tablet 10 mg PO QDAY #90 tabs 10/10/24 07/17/25 Rx (Singulair) buspirone 5 mg tablet 5 mg PO TID 3 months #270 tabs 11/01/24 07/17/25 Rx metoprolol tartrate 25 mg tablet 25 mg PO BID #180 tabs 11/05/24 07/17/25 Rx bupropion HCl 150 mg 24 hr tablet, 150 mg PO QAM #90 tabs 12/20/24 07/17/25 Rx extended release pantoprazole 40 mg tablet,delayed 40 mg PO DAILY #90 tabs 12/20/24 07/17/25 Rx release cetirizine 10 mg tablet (Zyrtec) 10 mg PO QDAY PRN 02/26/25 07/17/25 History promethazine 25 mg tablet 25 mg PO TID PRN nausea and 05/07/25 07/17/25 Rx vomiting #60 tabs Is last menstrual period known: No Post menopausal: No Patient : No : No PFSH Medical History Scalp lesion Colon cancer screening Change in skin mole Health care maintenance Hypertension Hematuria Urinary tract infection with hematuria Contact with and (suspected) exposure to other viral communicable diseases Acute sinusitis, unspecified BATISTA (dyspnea on exertion) Infected dental caries Low back pain Greater trochanteric bursitis of both hips Bilateral primary osteoarthritis of hip Right hip pain Left hip pain Leg pain Abnormal uterine bleeding (AUB) Paroxysmal supraventricular tachycardia Wide-complex tachycardia COVID-19 virus detected (05/27/21) Palpitations Back pain Segmental and somatic dysfunction of pelvic region Segmental and somatic dysfunction of thoracic region Segmental and somatic dysfunction of lumbar region Segmental and somatic dysfunction of cervical region Chronic sinusitis Fibromyalgia History of gastric ulcer Neuropathy IBS (irritable bowel syndrome) Headache, migraine history of breast lump/cyst Back problem Arthritis Anemia Seasonal allergies GERD (gastroesophageal reflux disease) GI bleed Surgical History History of left heart catheterization (05/27/21) history of stomach surgery Family History Mother Asthma Ulcer Arthritis Anxiety Anemia Sister Seizures Bleeding disorder Grandfather Liver /kidney disease Cancer Alcoholism Father Hypertension Grandmother Diabetes Cancer Other CVA (cerebral vascular accident) Colon cancer Heart disease Myocardial infarction Sudden cardiac Social History number of children: 1 current occupational status: employed current occupation: [employer] Smoking Status: Former smoker how long ago did patient quit smoking: >10 years ago alcohol intake: current alcohol intake frequency: a few times a month Alcohol type: beer, wine and hard liquor details: 2-3 x a month substance use type: does not use caffeine: No what type of physical activity do you participate in: walking frequency: 1-2 times per week seatbelt use: always do you feel safe at home: Yes additional social history: HPI TRH BS Cysto Details: ADDI VILLALPANDO is a 44 year old (vaginal delivery, one molar , one miscarriage), who presents for discussion about hysterectomy. Ultrasound was performed and EMB by that showed polyp like structures. She would like to discuss hysterectomy over ablation or D&C due to her ongoing heavy periods for several years. She is not interested in hormonal therapy. She is a newly wed an has not been able to be intimate for almost a year. She has a h/o vertical abdominal skin incision for a ruptured ulcer. 'States had an ulcer that eroded from her stomach to her spine and it ripped away so had to move emergently from a scope procedure to open surgery. We discussed needing to obtain ROR for this prior to surgery. However, operative note explains that there was a bleeding ulcer that was not controlled with endoscopy. She underwent laparotomy from xyphoid to just below umbilicus. The surgeon was able to isolate the ulcer and remove it. He performed a vagotomy and a pyloroplasty. There was mention of small amount of bleeding on the liver that was cauterized easily. The surgery appeared without complications unlike what she explained. Therefore, I feel comfortable performing a laparoscopic hysterectomy. She also is monitored by cardiology for SVT, h/o covid related problems, and and hypertension She underwent heart catheterization in June 04, 2024 that demonstrated normal LV function and normal coronary arteries. She was transferred to [facility] where she underwent evaluation by EP. An EP study resulted as normal and she was initiated on flecainide and beta-kaiser and tolerated this well. Flecainide has since been discontinued. ultrasound of pelvis; Measurements: Uterus: 7.9 cm x 6.7 cm x 4.5 cm with a volume of 125.29 mL Endometrial Thickness: 1.4 cm Right Ovary: 6.4 cm x 5.4 cm x 4.2 cm with a volume of 75.16 mL. Left Ovary: 1.8 cm x 1.4 cm x 1.4 cm with a volume of 59.31 mL. TRANSABDOMINAL: Uterus: Normal size, myometrial echotexture, and contour. Nabothian cyst. Endometrium: The endometrium is thickened. Cystic areas are seen within it. Right ovary: There is a 5.3 cm 4.4 cm 4 cm cyst in the right ovary. A daughter cyst is seen within the dominant cyst. Left ovary: Normal size and echotexture. Other: No large pelvic mass identified. Transvaginal sonography was performed to better visualize the endometrium. TRANSVAGINAL: Uterus: Anteverted. Endometrium: Endometrium is thickened measuring 1.4 cm. Cystic changes are seen within it. Clinical correlation recommended. Right ovary: There is a dominant 5.3 cm 4.4 cm 4 cm cyst in the right ovary. A daughter cyst is seen within the dominant cyst. Left ovary: Normal size and echotexture. Other adnexal findings: None. Cul-de-sac: No free intraperitoneal fluid identified. Tenderness: No tenderness US/Pelvic w/ Transvaginal IMPRESSION: 5.3 cm 4.4 cm 4 cm cyst in the right ovary. A daughter cyst is seen within it. The endometrium is thickened measuring 1.4 cm. History 3 Elective abortions Hx Para 1 Spontaneous abortions Hx # Term Pregnancies Ectopic pregnancies Hx # Pregnancies Multiple births # of living children Past Pregnancies Del. Date Name GA/Weeks Outcome Route Bth Weight Gen Labor Lgth Anesthesia Del Locatn Provider FOB 07/12/97 Neeru 40 live - full term 7lbs 3.5oz Female epidural [facility] Dr. Young Ingram Delivery Date: 07/12/97 Last Updated by: Li Nuno No issues during or delivery ROS Const ROS Unobtainable: All systems reviewed & are unremarkable except as noted in H Resp Resp: Reports system reviewed and no additional complaints, except as documented; Denies cough GI GI: Reports as per HPI Psych Psych: Reports system reviewed and no additional complaints, except as documented Exam Const General: cooperative, healthy appearing, comfortable and no acute distress Resp Effort & Inspection: normal respiratory effort Skin General: no rashes or lesions noted Psych Appearance: grossly normal Speech and Movement: speech and movement normal Coding Level of Care Code Off vis,est,level 4 Diagnoses Menorrhagia N92.0 Pre-op evaluation Z01.818 Assessment and Plan Assessment and Plan (1) Menorrhagia: Status: Acute (2) Pre-op evaluation: Status: Acute Orders: Orders CBC W/Diff, Automated 07/17/25 N92.0 - Excessive and frequent menstruation with regular cycle, Z01.818 - Encounter for other preprocedural examination Type & Screen - PAT ONLY 07/17/25 N92.0 - Excessive and frequent menstruation with regular cycle, Z01.818 - Encounter for other preprocedural examination Plan After discussing the patient's diagnosis and treatment plan options, patient wishes to proceed with surgical management. I have discussed with the patient the risks, benefits, and alternatives of the procedure which include but are not limited to risks of anesthesia, bleeding, infection, possible damage to bowel, bladder, or surrounding vasculature which could lead to additional surgery to evaluate any complications. Patient agrees to procedure and wishes to proceed. ACOG/uptodate references given for additional information regarding procedure. plan for robotic hyst
--- NOTE | 2025-08-06 09:24 | PCM.PRE.AN2 ---
ASA Classification* ASA Classification ASA Classification: 3 Assessment & Plan Anesthesia* Anesthesia Assessment Anesthesia Assessment: Discussed sedation and/or anesthesia options, risks, benefits, and alternatives with patient/parents/legal guardian/POA. Questions invited. The patient/parents/legal guardian/POA seems to understand and agrees to proceed with anesthesia plan. Reviewed the physical assessment, medical history, allergy history and patient home medications list prior to surgery/procedure/anesthetic and documented any changes. Performed airway and anesthesia risk assessments. Anesthesia Type Anesthesia Type: General History Source History Obtained from:: Patient and Chart Anesthesia Focused Assessment* Temperature: 98.6 F Pulse Rate: 74 Blood Pressure: 121/77 Respiratory Rate: 18 Pulse Ox: 99 Oxygen Delivery Method: Room Air Airway Assessment Mouth opens: >3 cm Mallampati Score: I Teeth Condition: Chipped/Broken (Right lower molar is chipped.) and Missing (Patient is missing some rear molars.) Neck Range of motion (ROM): Full ROM Labs Anesthesia Preop lab: CBC WBC, (4.4-11.0) 4.5 K/mm3 Today, 08:39 RBC, (4.2-5.4) 4.32 M/mm3 Today, 08:39 Hgb, (12.0-15.0) 11.8 g/dL L Today, 08:39 Hct, (37-47) 35.6 % L Today, 08:39 Plt Count, (150-450) 248 K/mm3 Today, 08:39 CHEMISTRY Potassium, (3.3-5.1) 4.6 mmol/L 08/02/25, 08:18 Sodium, (133-145) 141 mmol/L 08/02/25, 08:18 Magnesium, (1.5-2.2) 2.2 mg/dL 08/02/25, 08:18 BUN, (4-19) 16 mg/dL 08/02/25, 08:18 Creatinine, (0.70-1.20) 1.00 mg/dL 08/02/25, 08:18 Glucose, (70-99) 81 mg/dL 08/02/25, 08:18 TSH, (0.300-4.200) 1.270 uIU/mL 05/03/25, 11:03 COAG PT, (11.7-14.9) 13.0 SECONDS 05/26/21, 14:38 Urine Test Negative Negative Today, 08:39 Tst Clinic Negative 04/25/25, 10:54 Pre-Assessment Diagnosis/Proposed Procedure Planned Operative Procedure(s): LAP TOTAL ROBOTIC HYSTERECTOMY BSO Anesthesia History Anesthesia History - neighborhood worker: Anesthesia History - neighborhood worker Hx Hospitalization No 08/01/25 12:25 Any Problems With Anesthesia No 08/01/25 12:25 Cholinesterase deficiency No 08/01/25 12:25 You/Your Family Experience No 08/01/25 12:25 fever (hyperthermia) with Relationship Recent Exposure to Contagious No 08/06/25 08:19 Disease Does patient have nerve No 08/01/25 12:25 stimulator Patient instructed to have device shut off --Does patient have Pacemaker No 08/06/25 08:19 or ICD? When Was Last Pacemaker Check QUESTION #4 FULL TEXT: You/Your Family Experience fever (hyperthermia) with Anesthesia Last Oral Intake Last Oral intake: Last Oral Intake NPO since 07:00 08/06/25 08:19 Meds taken in AM with sips of Yes 08/06/25 08:19 water? Meds patient instructed to medlist 08/06/25 08:19 take am of surgery Any additional information?: Yes NPO since: 07:00 (Patient had preop Ensure at 7 AM.) Meds taken in AM with sips of water?: Yes PONV PONV - neighborhood worker: PONV - neighborhood worker Female Yes 08/01/25 12:25 HX of Motion Sickness Yes 08/01/25 12:25 HX of N/V After Surgery No 08/01/25 12:25 Non-Smoker No 08/01/25 12:25 Duration of Surgery greater Yes 08/01/25 12:25 than 60 minutes Number of Risk Factors 3 08/01/25 12:25 PONV Score Moderate Risk 08/01/25 12:25 Height & Weight Height & Weight: Anesthesia: Height & Weight Height 5 ft 7 in 08/06/25 08:19 Weight: 131.1 kg 08/06/25 08:19 Body Mass Index (BMI) 45.2 08/06/25 08:19 Respiratory Assessment Respiratory Assessment - neighborhood worker: Respiratory Tract Infection Hx - neighborhood worker Hx Respiratory Tract Infection No 08/01/25 12:25 STOP Sleep Apnea STOP Sleep Apnea - neighborhood worker: STOP Sleep Apnea - neighborhood worker Hx Hypertension Yes: CONTROLLED WITH MED 08/01/25 12:25 Hx Sleep Apnea No 08/01/25 12:25 CPAP BIPAP Do you snore loudly (louder No 08/01/25 12:25 than talking or can be heard Do you often feel tired/ Yes 08/01/25 12:25 fatigued/ sleepy during daytime? Has anyone observed you stop Yes 08/01/25 12:25 breathing during sleep? STOP Results Positive 08/01/25 12:25 QUESTION #5 FULL TEXT : Do you snore loudly (louder than talking or can be heard through closed doors)? Tobacco Use History Tobacco Use History - neighborhood worker: Tobacco Use History - neighborhood worker Tobacco Use Smoking Status Current every day smoker 08/01/25 12:25 Hx Tobacco Use Yes 08/01/25 12:25 Years Smoking Packs Smoked per Day Smoking Cessation Date was within the last 15 years Hx Smoking Cessation Date 08/01/25 12:25 Hx Smoking Cessation Counseling Any additional information?: Yes Tobacco Use: Vapor (Patient uses a vape today.) Hematologic Medial History Hematologic Hx - neighborhood worker: Hematologic Medical Hx - smocker Hx of Blood Transfusion Yes 08/01/25 12:25 Hx of Transfusion in last 3 No 08/01/25 12:25 Months Date of Last Transfusion (if within last 3 months) Ever experience any problems No 08/01/25 12:25 with transfusion(s)? Specify any problems Hx of Preganancy in last 3 No 08/01/25 12:25 Months Nurse Filling Out Transfusion DSCHRIBER 08/01/25 12:25 & Questions: Date: 08/01/25 08/01/25 12:25 Time: 12:08/01/25 12:25 Patient unable to answer at this time (ie. confused, unrespo /Reproduction History /Reproductive History - neighborhood worker: /Reproductive Hx- neighborhood worker Hx Now No 08/01/25 12:25 Gestational Age (in weeks): EDC: Hx Hx Para Hx Section SAB No 08/01/25 12:25 Does the father of the baby or his family experience fever w Father of the baby Malignant Hypertension history comment Active Medications Active Medications: Current Medications Generic Name Dose Route Start Last Admin Trade Name Lluvia PRN Reason Stop Dose Admin Acetaminophen 1,000 mg 08/06/25 10:00 08/06/25 08:52 Acetaminophen 500 Mg Tablet PO 08/06/25 10:01 1,000 mg PREOP ONE Administration Celecoxib 400 mg 08/06/25 10:00 08/06/25 08:52 Celecoxib 200 Mg Capsule PO 08/06/25 10:01 400 mg PREOP ONE Administration Gabapentin 600 mg 08/06/25 10:00 08/06/25 08:52 Gabapentin 600 Mg Tablet PO 08/06/25 10:01 600 mg PREOP ONE Administration Lactated Ringer's 1,000 mls @ 40 mls/hr 08/06/25 10:00 08/06/25 08:51 IV 40 mls/hr .Q25H YULIA Administration Cefazolin Sodium 3 gm/ Sodium 115 mls @ 150 mls/hr 08/06/25 10:00 Chloride IV 08/06/25 10:45 INTRAOP ONE Lactated Ringer's 1,000 mls @ 70 mls/hr 08/06/25 10:00 IV .[id number] YULIA Insulin Human Lispro 0 unit 08/06/25 10:00 Insulin Lispro 100 Unit/Ml Insuln.Pen SC 08/06/25 18:00 Q4H PRN PRN BG >/= 180, SEE PROTOCOL Protocol Ondansetron HCl 4 mg 08/06/25 10:00 Ondansetron 4 Mg/2 Ml Vial IV 08/06/25 10:01 INTRAOP ONE Phenazopyridine HCl 190 mg 08/06/25 10:00 08/06/25 08:52 Phenazopyridine 95 Mg Tablet PO 08/06/25 10:01 190 mg PREOP ONE Administration Scopolamine HBr 1 patch 08/06/25 10:00 08/06/25 08:52 Scopolamine 1mg/72hr Patch TD 08/06/25 10:01 1 patch PREOP ONE Administration PFSH Medical History (Updated 08/06/25 @ 09:[address] Benito Gupta MD) Gastric ulcer Wears glasses Depression Anxiety Marijuana use Alcohol use Arthritis Anemia History of irregular heartbeat Back pain Migraine headache Gastric reflux Syncope History of hiatal hernia Vapes nicotine containing substance Leg cramps History of pain when walking History of edema History of echocardiogram Cardiology follow-up encounter History of bleeding ulcers Hypertension COVID-19 virus detected (05/27/21) Fibromyalgia history of breast lump/cyst Home Medications ?Medication ?Instructions ?Recorded ?Last Taken ?Type lysine 500 mg tablet (L-Lysine) 500 mg PO DAILY 06/10/20 05/27/21 History diclofenac sodium 1 % topical gel 2 g topical ONCE PRN Pain 05/21/21 Unknown History ferrous sulfate 325 mg (65 mg 325 mg PO DAILY #90 tabs 04/13/23 Unknown Rx iron) tablet (Feosol) magnesium oxide 400 mg PO DAILY #90 tabs 04/13/23 Unknown Rx cholecalciferol (vitamin D3) 250 250 mcg PO QWEEK 07/04/23 Unknown History mcg (10,000 unit) capsule losartan 25 mg tablet 25 mg PO DAILY #180 tabs 07/09/24 08/06/25 Rx montelukast 10 mg tablet 10 mg PO QDAY #90 tabs 10/10/24 Unknown Rx (Singulair) metoprolol tartrate 25 mg tablet 25 mg PO BID #180 tabs 11/05/24 08/06/25 Rx pantoprazole 40 mg tablet,delayed 40 mg PO DAILY #90 tabs 12/20/24 08/06/25 Rx release cetirizine 10 mg tablet (Zyrtec) 10 mg PO QDAY PRN allergy symptoms 02/26/25 Unknown History buspirone 5 mg tablet 5 mg PO TID 3 months #270 tabs 07/24/25 Unknown Rx promethazine 25 mg tablet 25 mg PO TID PRN nausea and 07/24/25 Unknown Rx vomiting #60 tabs Allergy/AdvReac Type Severity Reaction Status Date / Time NSAIDS (Non-Steroidal AdvReac Upset Verified 08/06/25 08:17 Anti-Inflamma Stomach Family History Mother Asthma Ulcer Arthritis Anxiety Anemia Sister Seizures Bleeding disorder Grandfather Liver /kidney disease Cancer Alcoholism Father Hypertension Grandmother Diabetes Cancer Other CVA (cerebral vascular accident) Colon cancer Heart disease Myocardial infarction Sudden cardiac Surgical History History of esophagogastroduodenoscopy (EGD) History of hysteroscopy History of left heart catheterization (05/27/21) Social History number of children: 1 current occupational status: employed current occupation: [employer] Smoking Status: Current every day smoker tobacco type: cigarettes and e-cigarettes how long ago did patient quit smoking: >10 years ago alcohol intake: current alcohol intake frequency: a few times a month Alcohol type: beer, wine and hard liquor details: 2-3 x a month substance use type: does not use caffeine: No what type of physical activity do you participate in: walking frequency: 1-2 times per week seatbelt use: always do you feel safe at home: Yes additional social history: Review of Systems (Anesthesia) ROS Narrative System reviewed and no additional complaints, except as documented.
--- NOTE | 2025-08-06 09:54 | DCINST_ITS ---
Discharge Instructions DC O2, CPAP, BIPAP needs Home O2 Discharge instructions: No Dressing / Incision Discharge Activity: May Shower May resume sexual activity in: 8 weeks Weight Bearing Status: Full weight bearing Lifting Restrictions: 10 pounds for 2 weeks Dressing / Incision Call your doctor if your incision/area has: Continuous Slow Oozing, Sudden I ncreased Bleeding, Increased Pain/ Swelling, Increased Redness and Foul Smelling Discharge Call your doctor if you observe: Fever of 101 or Higher, Using more than 1 pad per hour, Shortness of breath, Chest pain and Uncontrolled pain Suture Line Care: Avoid Pulling/Pushing and Avoid Pinching/Bending Remove Dressing in: 1 week (if present) Cleanse incision/area with: Soap & Water and Keep Dressing Clean & Dry Follow Up Care Please Follow Up With: Ale Ma DO When: Call to make an appointment with your doctor for a postop visit in 2 and 6 weeks Test Results: Test results from this visit will be discussed in further detail at your follow- up appointment, if applicable. Discharge Plan Admission Primary Reason for Your Visit: hysterectomy Attending Provider: Ale Ma Primary Care Provider: Mark Lezama Instructions Print Language: Irish Discharge Orders/Prescriptions Prescriptions: New hydrocodone-acetaminophen 5-325 mg tablet 1 tab PO Q4H PRN (Reason: pain) 7 Days Qty: 20 0RF celecoxib [Celebrex] 50 mg capsule 50 mg PO BID Qty: 30 0RF Continued lysine [L-Lysine] 500 mg tablet 500 mg PO DAILY diclofenac sodium 1 % gel 2 g topical ONCE PRN (Reason: Pain) Rx Instructions: apply to single elbow, wrist or hand; for hand includes palm/fingers/back of hand cholecalciferol (vitamin D3) 250 mcg (10,000 unit) capsule 250 mcg PO QWEEK cetirizine [Zyrtec] 10 mg tablet 10 mg PO QDAY PRN (Reason: allergy symptoms) montelukast [Singulair] 10 mg tablet 10 mg PO QDAY Qty: 90 1RF ferrous sulfate [Feosol] 325 mg (65 mg iron) tablet 325 mg PO DAILY Qty: 90 2RF magnesium oxide 400 mg magnesium tablet 400 mg PO DAILY Qty: 90 3RF losartan 25 mg tablet 25 mg PO DAILY Qty: 180 3RF metoprolol tartrate 25 mg tablet 25 mg PO BID Qty: 180 3RF pantoprazole 40 mg tablet,delayed release (DR/EC) 40 mg PO DAILY Qty: 90 1RF promethazine 25 mg tablet 25 mg PO TID PRN (Reason: nausea and vomiting) Qty: 60 1RF buspirone 5 mg tablet 5 mg PO TID 90 Days Qty: 270 0RF Rx Instructions: take with 15mg tablet Referrals / Follow Up: Mark Lezama MD [Primary Care Provider, Internal Medicine] Disposition Disposition (needs filled in before D/C Order can be placed): Home, Self Care
--- NOTE | 2025-08-06 10:00 | HYST_PTH ---
PATIENT: LUIS PACE [place] [facility] [id number] AGE/SX: 45/F ROOM: RE08/06/[address]: Dr. Ale Ma DO : 1980 BED: DIS: 08/06/2025 SPEC #: [id number] RECD: 08/06/25 13:01 STATUS: GIOVANA REPiyush #: [id number] KEYSHAWN: 08/06/25 10:[address]: Ale Ma DEPT: SURGICAL PATHOLOGY RECD BY: Sanaz Colon ENTERED: 08/06/25 13:49 SP TYPE: HYSTERECT OTHR DR: Dr. Mark Lezama MD Tissues: Uterus, NOS Procedures: Surgery Specimen Level V HEADER OPERATION: ERAS, lap total robotic hysterectomy PRE-OP DIAGNOSIS: Menorrhagia TISSUE SUBMITTED: A. Uterus cervix, bilateral tubes MICROSCOPIC DIAGNOSIS A. Uterus, cervix, fallopian tubes, total robotic hysterectomy and bilateral salpingectomy: - Cervix: microglandular hyperplasia. - Endometrium: secretory phase. - Myometrium: adenomyosis. - Left Fallopian tube: benign paratubal cysts. - Right Fallopian tube: benign paratubal cysts. MICROSCOPIC DESCRIPTION Slides are reviewed. GROSS DESCRIPTION A. Received in formalin labeled with the patient's name and date of . Designated as uterus, cervix, bilateral tubes is a 130.2 g, 8.7 x 5.9 x 4.5 cm uterus with attached adnexa. The serosa is pink-purple with focal erythema. The attached cervix is colunga-pink and focally erythematous with an undesignated suture at the 3 o'clock position and measuring 3.5 x 3.0 cm; the 1.1 cm os is probe patent. Mucoid containing cysts are present contain brown mucoid material The specimen is inked as follows: Wlbxhczs-yrxyzAktngomxr-bidve Opening reveals a 6.2 x 3.5 cm endometrial canal lined by colunga-a red lush endometrium with yellow to monroe discoloration and a bulky appearance near the fundus, measuring up to 1.7 cm thick. The myometrium is colunga-pink and trabeculated, measuring up to 2.5 cm thick. Definitive lesions are not grossly appreciated. The red-purple bilateral fallopian tubes are fimbriated and measure 8.5 x 0.9 cm (L) and 8.8 x 0.7 cm (R); multiple paratubal cyst are identified in both fallopian tubes ranging from 0.1 cm to 2.0 cm (R). Building Trades Instructor sections are submitted as follows: A1: Anterior cervixA2: Posterior cervixA3-A4: Anterior endomyometriumA5-A7: Posterior endomyometriumA8: Left fallopian tubeA9: Right fallopian tube MA 08/06/2025 CPT:90375
[2025-08-06] MEDS: Cefazolin 1 GM/5 ML Vial 3 GM IV (10:04)
[2025-08-06] MEDS: Lactated Ringers 1,000 ML 1000 ML IV (10:04)
[2025-08-06] MEDS: Midazolam 2 MG/2 ML Syringe IV (10:04)
[2025-08-06] MEDS: Lidocaine 1% (5 ml sdv) 5 ML Vial 10 ML IV (10:09)
[2025-08-06] MEDS: metroNIDAZOLE 500 MG/100 ML BAG 100 MG IV (10:29)
[2025-08-06] MEDS: fentaNYL 100 MCG/2 ML Ampul 150 MCG IV (11:40)
--- NOTE | 2025-08-06 11:42 | OP.PCM_ITS ---
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 handling plant operator: Yes Bill Hiker: Fco Mancera Tasks completed by first aid trainer: Closing, Insert Trochanter and Trocar Additional information technology assistant?: No Type of Anesthesia: General RN Documented Start/Stop Times: Operation Date: 08/06/25 10:00 Case Time Into Pre-Op 08/06/25 07:59 Out of Pre-Op 08/06/25 10:00 Anesthesia Start 08/06/25 10:04 Into Room 08/06/25 10:04 Procedure Start 08/06/25 10:32 Procedure Start Time: 10:04 Procedure Stop Time: 11:54 Select all DRAINS/GRAFTS/IMPLANTS that apply: None Estimated Blood Loss: 20cc Specimen collected: Yes Description of specimen(s) removed: uterus, cervix, bilateral fallopian tubes Description of surgery: Reason for surgery: This is a 45-year-old G2, P1 who presented to my office with history of heavy periods. the planned procedure is for a robotic hysterectomy the risks benefits and alternatives were discussed with the patient the patient had a clear understanding of the procedure and a consent form was signed. Procedure: The patient was placed in the dorsal low lithotomy position and prepped and draped in the normal sterile fashion both abdominally and in the perineum. Her legs were placed in stirrups a De La Torre catheter was inserted into the urethra without difficulty. A weighted speculum was placed in the vagina and a single- tooth tenaculum was used to grasp the anterior lip of the cervix. An advincula uterine manipulator was inserted through the cervix without complication. It was then tied into place at the 2 and 10:00 locations on the cervix. Gloves were changed and attention was turned towards the abdomen. Approximately 23 cm above the pubic symphysis in the midline, and after Marcaine injection, a 8 mm incision was made. An 8 mm trocar was inserted through the laparoscope, then inserted into the abdomen under direct visualization using the laparoscope. Good abdominal placement was noted and no complications were appreciated. An air seal device was utilized to create pneumoperitoneum. At 12 cm lateral to the midline on the left and right sides 8 mm accessory ports were placed. Next a left upper quadrant 8 mm information technology assistant port site was placed. The patient was placed in steep Trendelenburg position. The robot was docked. The hysterectomy was initiated first by taking down the round ligament on each side using the vessel sealer device. The fallopian tubes were grasped and the underlying mesosalpinx was cauterized and cut to the level of the cornua. The broad ligament was then and taken down using the vessel sealer device. Next the bladder flap was taken down without complication. This was done using monopolar cautery to the level of the cervical vaginal junction. After the bladder flap was created, uterine vessels were then isolated and cauterized using the vessel sealer device and EndoShears. At this point the uterine vessels were taken down further starting from the ascending branch, dissecting along the edges of the cervix to the level of the cervical vaginal junction with hemostasis appreciated. The cervical vaginal junction was then using monopolar cautery in a circumferential pattern across the superior aspect of the cervix. The specimen was delivered through the vagina and sent to pathology. The right ovarian cyst was drained via cauterization with the monopolar scissors and clear fluid returned. The remaining vaginal cuff was then closed using a V lock suture. This was performed in a running technique. Excellent hemostasis was obtained and good closure was noted. Irrigation was then performed. All operative sites were noted to be hemostatic. A cystoscopy was performed with a 70 degree cystoscope through the urethra into the bladder without complication. The bladder was instilled with approximately 250 cc of normal saline. Intraoperative images were made. Ureteral orifices and jets were identified. No suture material was appreciated in the bladder. The bladder was then drained and cystoscope was removed. The abdominal cavity was again examined using the laparoscope after the robot was undocked. All operative sites were noted to be hemostatic. The trochars were removed under direct visualization without complication and pneumoperitoneum was reduced. At this point the skin was then closed using 4-0 Monocryl subcuticular stitch and sealed with surgical glue. The patient tolerated the procedure well sponge lap and needle counts were correct x2 the patient was taken to the recovery room in stable condition. Surgical Findings: Findings:11 cm uterus uterus, normal appearing ovaries and tubes with the exception of simple cysts on the fallopian tube and right ovary measuring about 2 cm each. On exploration of the abdominal cavity the uterus, adnexa, bowel, and liver were found to be normal. Cystoscopy showed no evidence of leaking at approximately 250 cc of normal saline, positive ureteral orifices and jet flow are seen and no suture material was appreciated in the bladder. Complications Complications: No Admit VTE Documentation VTE Present on Admission: Yes VTE Mechan Device Prophylaxis: None VTE Pharm Prophylaxis ordered?: No Reason prophylaxis not ordered: Treatment Not Indicated
--- NOTE | 2025-08-06 12:47 | PCM.POST.ANE ---
Anesthesia: Postop Eval I Current Vital Signs Temperature: 98.6 F Pulse Rate: 84 Blood Pressure: 119/82 Respiratory Rate: 16 Pulse Ox: 100 Assessment Airway patent: Yes Spontaneous unlabored respirations: Yes nausea: No Vomiting: No Anesthesia Complication: No Fluid Hydration Crystalloid volume administer (ml): 1,000 Total IV fluid infused: 1,000 Progress Note Anesthesia document: Postop Eval 1 completed: Yes
--- NOTE | 2025-08-06 13:13 | POSTOPAN2_ITS ---
Anesthesia Postop Eval I Sum Postop Eval Completion status Anesthesia document: Postop Eval 1 completed: Yes Anesthesia Postop Eval I Summary Anesthesia Postop Eval I Summary: Anesthesia Postop Eval I: Assessment Summary Airway patent Yes 08/06/25 12:47 HOT [email or web address].AHUF Spontaneous unlabored Yes 08/06/25 12:47 HOT DIPPER.UF respirations Mental status nausea No 08/06/25 12:47 HOT DIPPER.AHUF Vomiting No 08/06/25 12:47 HOT DIPPER.UF Anesthesia Postop Eval I: Fluid Summary Crystalloid volume administer 1,000 08/06/25 12:47 HOT DIPPER.AHUF (ml) Colloids volume administered ( ml) Blood Product volume administered (ml) Total IV fluid infused 1,000 08/06/25 12:47 HOT DIPPER.UF Anesthesia Postop Eval I: Summary Notes Anesthesia Complication No 08/06/25 12:47 HOT DIPPER.[facility] Anesthesia Complication Comment: Post-operative progress note Anesthesia: Postop Eval II Evaluation Mental status: Awake and Calm Pain Level: 2 nausea: No Vomiting: No Complications Anesthesia Complication: No
--- NOTE | 2025-08-06 13:13 | PCM.POSTANE2 ---
Anesthesia Postop Eval I Sum Postop Eval Completion status Anesthesia document: Postop Eval 1 completed: Yes Anesthesia Postop Eval I Summary Anesthesia Postop Eval I Summary: Anesthesia Postop Eval I: Assessment Summary Airway patent Yes 08/06/25 12:47 DIELECTRIC EMBOSSING MACHINE OPERATOR.AHUF Spontaneous unlabored Yes 08/06/25 12:47 DIELECTRIC EMBOSSING MACHINE OPERATOR.UF respirations Mental status nausea No 08/06/25 12:47 DIELECTRIC EMBOSSING MACHINE OPERATOR.AHUF Vomiting No 08/06/25 12:47 DIELECTRIC EMBOSSING MACHINE OPERATOR.UF Anesthesia Postop Eval I: Fluid Summary Crystalloid volume administer 1,000 08/06/25 12:47 DIELECTRIC EMBOSSING MACHINE OPERATOR.AHUF (ml) Colloids volume administered ( ml) Blood Product volume administered (ml) Total IV fluid infused 1,000 08/06/25 12:47 DIELECTRIC EMBOSSING MACHINE OPERATOR.UF Anesthesia Postop Eval I: Summary Notes Anesthesia Complication No 08/06/25 12:47 DIELECTRIC EMBOSSING MACHINE OPERATOR.[facility] Anesthesia Complication Comment: Post-operative progress note Anesthesia: Postop Eval II Evaluation Mental status: Awake and Calm Pain Level: 2 nausea: No Vomiting: No Complications Anesthesia Complication: No
[2025-08-06] MEDS: HYDROcodone Bitartrate/Apap 5/325 Tablet PO (14:01)
== END 2025-08-06 14:58 | disposition home or self-care (01) ==
LOC: SDC 07:57 → AC 07:59
PROVIDERS: PCP Internal Medicine; Referring Provider Obstetrics & Gynecology; Visit Provider Obstetrics & Gynecology
PROC: 0UT90ZZ Resection of Uterus, Open Approach (ICD-10-PCS; CPT 58571; principal; 2025-08-06 09:40)
DX: N80.03 Adenomyosis of the uterus (principal); Z79.4 Long term (current) use of insulin; N92.0 Excessive and frequent menstruation with regular cycle; N83.201 Unspecified ovarian cyst, right side; K21.9 Gastro-esophageal reflux disease without esophagitis; Z87.891 Personal history of nicotine dependence; I10 Essential (primary) hypertension; Z79.899 Other long term (current) drug therapy; N87.9 Dysplasia of cervix uteri, unspecified; N83.8 Other noninflammatory disorders of ovary, fallopian tube and broad ligament
CPT/HCPCS: 58571; S2900; 00840; 81025; 82962; 85025; 85027; 86850; 86900; 86901; 88307; 93005; J2405